=== PATIENT | female | born 1970 | race Caucasian/White ===

== ENCOUNTER → 2017-04-23 | Outpatient (REF) | payer OTHER | LOC: M SFHCWAGY 15:13 | PROVIDERS: ATTEND Nurse Practitioner Women's Health | DX: Z12.4 Encounter for screening for malignant neoplasm of cervix (principal) ==

== ENCOUNTER → 2017-04-23 | Outpatient (CLI) | payer OTHER ==
--- NOTE | 2017-04-23 16:50 | REP ---
Bilateral screening digital mammogram: The patient indicates she had a clinical breast exam in April 2017. There are no palpable abnormalities or other breast complaints. Comparison is 12/01/2011. There is bilaterally dense breast parenchyma, not significantly changed. There has been no interval development of masses, areas of structural distortion or clusters of microcalcifications typical of malignancy. Impression: There is no evidence of malignancy. . BI-RADS/ACR category 1 mammogram. Negative. Routine annual screening mammography is recommended. This mammogram was interpreted with the aid of an FDA-approved computer-aided detection system. A. Negative x-ray reports should not delay biopsy if a dominant or clinically suspicious mass is present. B. Four to eight percent of cancers are not identified by x-ray. C. Adenosis and dense breasts may obscure an underlying neoplasm The patient letter being requested is M1 (Dense). MTDD
== END ==
LOC: M WHC 14:37
PROVIDERS: ATTEND Nurse Practitioner Women's Health
DX: Z12.31 Encounter for screening mammogram for malignant neoplasm of breast (principal)

== ENCOUNTER → 2017-05-02 | Outpatient (CLI) | payer OTHER ==
[2017-05-02 10:51] LABS: MEAN CORPUSCULAR HEMOGLOBIN 30.2 pg (27.0-33.0); MEAN CORPUSCULAR HGB CONC 32.6 g/dl (32.0-36.5); MEAN CORPUSCULAR VOLUME 92.6 fl (80.0-96.0); RED CELL DISTRIBUTION WIDTH 12.9 % (11.5-14.5); WHITE BLOOD COUNT 8.3 10^3/uL (4.0-10.0)
[2017-05-02 11:22] LABS: ALBUMIN 3.8 GM/DL (3.2-5.2); ALBUMIN/GLOBULIN RATIO 1.23 (1.00-1.93); ALKALINE PHOSPHATASE 76 U/L (45-117); ALT/SGPT 22 U/L (12-78); ANION GAP 7 MEQ/L (8-16); AST/SGOT 13 U/L (15-37); BILIRUBIN,TOTAL 0.4 MG/DL (0.2-1.0); BLOOD UREA NITROGEN 18 MG/DL (7-18); CALCIUM LEVEL 8.9 MG/DL (8.5-10.1); CARBON DIOXIDE LEVEL 30 MEQ/L (21-32); CHLORIDE LEVEL 105 MEQ/L (98-107); CHOLESTEROL LEVEL 223 MG/DL (<200); CREATININE FOR GFR 0.81 MG/DL (0.55-1.02); GLOMERULAR FILTRATION RATE > 60.0 (>58); GLUCOSE, FASTING 97 MG/DL (70-105); POTASSIUM SERUM 4.2 MEQ/L (3.5-5.1); SODIUM LEVEL 142 MEQ/L (136-145); THYROXINE (T4) 7.2 UG/DL (4.5-12.0); TOTAL PROTEIN 6.9 GM/DL (6.4-8.2); TRIGLYCERIDES LEVEL 97 MG/DL (<150)
== END ==
LOC: M LAB 10:33
PROVIDERS: ATTEND Family Medicine
DX: D64.9 Anemia, unspecified (principal); E03.9 Hypothyroidism, unspecified

== ENCOUNTER → 2017-08-09 | Outpatient (CLI) | payer OTHER ==
[2017-08-09 11:42] LABS: HEMATOCRIT 43.1 % (36.0-47.0); HEMOGLOBIN 14.3 g/dl (12.0-16.0); MEAN CORPUSCULAR HEMOGLOBIN 30.6 pg (27.0-33.0); MEAN CORPUSCULAR HGB CONC 33.2 g/dl (32.0-36.5); MEAN CORPUSCULAR VOLUME 92.3 fl (80.0-96.0); PLATELET COUNT, AUTOMATED 243 10^3/uL (150-450); RED BLOOD COUNT 4.67 10^6/uL (4.00-5.40); RED CELL DISTRIBUTION WIDTH 12.8 % (11.5-14.5); WHITE BLOOD COUNT 6.7 10^3/uL (4.0-10.0)
[2017-08-09 12:03] LABS: ESTIMATED AVERAGE GLUCOSE 114 MG/DL (60-110); HEMOGLOBIN A1c 5.6 %
[2017-08-09 12:17] LABS: ALBUMIN 4.2 GM/DL (3.2-5.2); ALKALINE PHOSPHATASE 86 U/L (45-117); ALT/SGPT 21 U/L (12-78); ANION GAP 7 MEQ/L (8-16); AST/SGOT 15 U/L (7-37); BILIRUBIN,TOTAL 0.5 MG/DL (0.2-1.0); BLOOD UREA NITROGEN 16 MG/DL (7-18); CARBON DIOXIDE LEVEL 28 MEQ/L (21-32); CHLORIDE LEVEL 105 MEQ/L (98-107); CHOLESTEROL LEVEL 251 MG/DL (<200); CHOLESTEROL RISK RATIO 5.837 (<5); CREATININE FOR GFR 0.82 MG/DL (0.55-1.02); GLOMERULAR FILTRATION RATE > 60.0 (>58); GLUCOSE, FASTING 97 MG/DL (70-105); HDL CHOLESTEROL 43 MG/DL (>40); LDL CHOLESTEROL 188.2 MG/DL (<100); NON-HDL-C 208 MG/DL; POTASSIUM SERUM 4.6 MEQ/L (3.5-5.1); SODIUM LEVEL 140 MEQ/L (136-145); TOTAL PROTEIN 7.7 GM/DL (6.4-8.2); TRIGLYCERIDES LEVEL 99 MG/DL (<150); URIC ACID 2.5 MG/DL (2.6-6.0)
[2017-08-10 11:57] LABS: TOTAL 25(OH) VITAMIN D 67.2 NG/ML (30.0-100.0)
== END ==
LOC: M LAB 11:08
DX: D64.9 Anemia, unspecified (principal); R53.83 Other fatigue; E03.9 Hypothyroidism, unspecified; M79.672 Pain in left foot; M77.32 Calcaneal spur, left foot
CPT/HCPCS: 73650

== ENCOUNTER → 2018-04-20 | Outpatient (CLI) | payer OTHER ==
[2018-04-20 13:25] LABS: HEMATOCRIT 43.2 % (36.0-47.0); HEMOGLOBIN 14.3 g/dl (12.0-15.5); MEAN CORPUSCULAR HEMOGLOBIN 29.9 pg (27.0-33.0); MEAN CORPUSCULAR HGB CONC 33.1 g/dl (32.0-36.5); MEAN CORPUSCULAR VOLUME 90.4 fl (80.0-96.0); PLATELET COUNT, AUTOMATED 272 10^3/uL (150-450); RED BLOOD COUNT 4.78 10^6/uL (4.00-5.40); RED CELL DISTRIBUTION WIDTH 12.7 % (11.5-14.5); WHITE BLOOD COUNT 8.9 10^3/uL (4.0-10.0)
[2018-04-20 14:19] LABS: ALBUMIN/GLOBULIN RATIO 0.95 (1.00-1.93); ALKALINE PHOSPHATASE 82 U/L (45-117); ALT/SGPT 24 U/L (12-78); ANION GAP 10 MEQ/L (8-16); AST/SGOT 19 U/L (7-37); BILIRUBIN,TOTAL 0.5 MG/DL (0.2-1.0); BLOOD UREA NITROGEN 16 MG/DL (7-18); CALCIUM LEVEL 8.9 MG/DL (8.5-10.1); CARBON DIOXIDE LEVEL 27 MEQ/L (21-32); CHLORIDE LEVEL 101 MEQ/L (98-107); CHOLESTEROL LEVEL 249 MG/DL (<200); CHOLESTEROL RISK RATIO 6.552 (<5); FREE T4 1.06 NG/DL (0.76-1.46); GLOMERULAR FILTRATION RATE > 60.0 (>58); GLUCOSE, FASTING 78 MG/DL (70-100); HDL CHOLESTEROL 38 MG/DL (>40); LDL CHOLESTEROL 184 MG/DL (<100); NON-HDL-C 211 MG/DL; SODIUM LEVEL 138 MEQ/L (136-145); TOTAL 25(OH) VITAMIN D 65.8 NG/ML (30.0-100.0); TOTAL PROTEIN 8.2 GM/DL (6.4-8.2); TRIGLYCERIDES LEVEL 134 MG/DL (<150)
[2018-04-20 14:32] LABS: ESTIMATED AVERAGE GLUCOSE 120 MG/DL (60-110); HEMOGLOBIN A1c 5.8 %
== END ==
LOC: M LAB 12:27
DX: R53.83 Other fatigue (principal)
CPT/HCPCS: 84443

== ENCOUNTER → 2018-09-27 | Outpatient (CLI) | payer BC ==
--- NOTE | 2018-09-27 17:49 | REPMRS ---
Patient History The patient states she had a clinical breast exam in 09/2018 Family history of endometrial cancer at age 50 or over in mother. Taking hormonal contraceptives for 7 years. Digital Woman Screen Mammo: September 27, 2018 - Exam #: [id number] Bilateral CC and MLO view(s) were taken. Technologist: Rebecca Carrasquillo, Technologist Prior study comparison: April 23, 2017, digital woman screen mammo performed at [facility]. April 17, 2016, digital woman screen mammo performed at [facility]. FINDINGS: The breast tissue is heterogeneously dense. This may lower the sensitivity of mammography. There has been no change in the appearance of the mammogram from the prior studies. There is a moderate amount of residual fibroglandular tissue which is fairly symmetric. There is no interval development of dominant mass, architectural distortion, or clustered microcalcification typical of malignancy. 3-D tomosynthesis shows no additional findings. No significant changes when compared with prior studies. Assessment: BI-RADS/ACR category 1 mammogram. Negative Mammogram. Recommendation Routine screening mammogram in 1 year (for women over age 40). This mammogram was interpreted with the aid of an FDA-approved computer-aided dectection system. A. Negative x-ray reports should not delay biopsy if a dominant or clinically suspicious mass is present. B. Four to eight percent of cancers are not identified by mammography. C. Adenosis and dense breast may obscure an underlying neoplasm. Electronically Signed By: Milo Garcia MD 09/27/18 [id number]
== END ==
LOC: M WHC 15:18
PROVIDERS: ATTEND Nurse Practitioner Women's Health
DX: Z12.31 Encounter for screening mammogram for malignant neoplasm of breast (principal); Z80.49 Family history of malignant neoplasm of other genital organs; Z92.0 Personal history of contraception

== ENCOUNTER → 2020-01-23 | Outpatient (CLI) | payer BC ==
--- NOTE | 2020-01-23 13:23 | REPMRS ---
Patient History The patient states she had a clinical breast exam in January 2020. Family history of endometrial cancer at age 50 or over in mother. Taking hormonal contraceptives for 8 years. 3D TOMOSYNTHESIS WAS PERFORMED. [facility] for [facility] cancer [facility] 8.2%. PINEDA Walker. Digital Woman Screen Mammo: January 23, 2020 - Exam #: [id number] Bilateral CC and MLO view(s) were taken. Technologist: Sakshi Linder, Technologist Prior study comparison: September 27, 2018, bilateral digital woman screen mammo performed at [facility]. April 23, 2017, digital woman screen mammo performed at [facility]. FINDINGS: The breast tissue is heterogeneously dense. This may lower the sensitivity of mammography. There has been no change in the appearance of the mammogram from the prior studies. There is a moderate amount of residual fibroglandular tissue which is fairly symmetric. There is no interval development of dominant mass, areas of architectural distortion, or clustered microcalcification typical of malignancy. Assessment: BI-RADS/ACR category 1 mammogram. Negative Mammogram. Recommendation Routine screening mammogram in 1 year (for women over age 40). This mammogram was interpreted with the aid of an FDA-approved computer-aided dectection system. Electronically Signed By: Timmy Machado MD 01/23/20 [id number]
== END ==
LOC: M WHC 11:33
PROVIDERS: ATTEND Nurse Practitioner Women's Health
DX: Z12.31 Encounter for screening mammogram for malignant neoplasm of breast (principal); Z80.49 Family history of malignant neoplasm of other genital organs

== ENCOUNTER → 2020-01-23 | Outpatient (REF) | payer BC | LOC: M SFHCWAGY 14:47 | PROVIDERS: ATTEND Nurse Practitioner Women's Health | DX: Z12.4 Encounter for screening for malignant neoplasm of cervix (principal) ==

== ENCOUNTER 2020-08-17 09:17 | Emergency (ER) | payer BC ==
[~2020-08-17] VITALS: Ht 162.6 cm; Wt 79.8 kg
--- OUTSIDE RECORDS SUMMARY | 2020-08-17 09:23 | CCD ---
Author Author [facility] Organization [facility] Address Unknown Phone Unavailable Care Team Providers Care Field Sales Trainer Name Role Phone LILO PERRY Unavailable Unavailable Re-disclosure Warning The records that you are about to access may contain information from federally-assisted alcohol or drug abuse programs. If such information is present, then the following federally mandated warning applies: This information has been disclosed to you from records protected by federal confidentiality rules (42 CFR part 2). The federal rules prohibit you from making any further disclosure of this information unless further disclosure is expressly permitted by the written consent of the person to whom it pertains or as otherwise permitted by 42 CFR part 2. A general authorization for the release of medical or other information is NOT sufficient for this purpose. The Federal rules restrict any use of the information to criminally investigate or prosecute any alcohol or drug abuse patient.The records that you are about to access may contain highly sensitive health information, the redisclosure of which is protected by Article 27-F of the [facility] Public Health law. If you continue you may have access to information: Regarding HIV / AIDS; Provided by facilities licensed or operated by the [facility] Office of Mental Health; or Provided by the [facility] Office for People With Developmental Disabilities. If such information is present, then the following [facility] mandated warning applies: This information has been disclosed to you from confidential records which are protected by state law. State law prohibits you from making any further disclosure of this information without the specific written consent of the person to whom it pertains, or as otherwise permitted by law. Any unauthorized further disclosure in violation of state law may result in a fine or half-way sentence or both. A general authorization for the release of medical or other information is NOT sufficient authorization for further disc losure. Encounters Encounter Providers Location Date Indications Data Source(s ) Outpatient Attender: [facility] 05/07/2020 04:04:00 PM EDT [facility] Outpatient Attender: [facility] 05/04/2020 12:29:01 PM EDT [facility] Outpatient Attender: [facility] 05/03/2020 03:56:01 PM EDT [facility] Outpatient Attender: [facility] 05/03/2020 03:55:00 PM EDT [facility] Outpatient [id number] [facility] [id number] 01/23/2020 12:00:00 AM EDT eCW1 ([facility]) Medications Medication Brand Name Start Date Product Form Dose Route Admi nistrative Instructions Pharmacy Instructions Status Indications Reaction Description Data Source(s) 4 mg 08/16/2020 12:00:00 AM EST tablets,dose pack 21 TAKE 1 TABLET BY MOUTH DIRECTED ON PACK TAKE 1 TABLET BY MOUTH DIRECTED ON PACK SOLD: 08/16/2020 [facility] 250 mg 08/16/2020 12:00:00 AM EST tablet 6 TAKE TWO TABLETS BY MOUTH AT ONCE ON THE FIRST DAY THEN TAKE ONE DAILY THEREAFTER TAKE TWO TABLETS BY MOUTH AT ONCE ON THE FIRST DAY THEN TAKE ONE DAILY THEREAFTER SOLD: 08/16/2020 [facility] 40 mg 08/13/2020 12:00:00 AM EST capsule 30 TAKE ONE CAPSULE BY MOUTH EVERY DAY TAKE ONE CAPSULE BY MOUTH EVERY DAY SOLD: 08/16/2020 [facility] 20 mg 08/13/2020 12:00:00 AM EST tablet 90 TAKE ONE TABLET BY MOUTH EVERY DAY TAKE ONE TABLET BY MOUTH EVERY DAY SOLD: 08/16/2020 [facility] 20 mg 08/13/2020 12:00:00 AM EST capsule,delayed release (DR/EC) 90 TAKE ONE CAPSULE BY MOUTH EVERY DAY TAKE ONE CAPSULE BY MOUTH EVERY DAY SOLD: 08/16/2020 [facility] Alprazolam 0.5 MG Oral Tablet ALPRAZOLAM 08/13/2020 12:00:00 AM EST ta blet 60 TAKE ONE TABLET BY MOUTH TWICE A DAY MAXIMUM DAILY DOSE = 2 TABLETS TAKE ONE TABLET BY MOUTH TWICE A DAY MAXIMUM DAILY DOSE = 2 TABLETS SOLD: 08/16/2020 [facility] Alprazolam 0.5 MG Oral Tablet ALPRAZOLAM 07/09/2020 12:00:00 AM EST ta blet 60 TAKE ONE TABLET BY MOUTH TWICE A DAY MAXIMUM DAILY DOSE = 2 TABLETS TAKE ONE TABLET BY MOUTH TWICE A DAY MAXIMUM DAILY DOSE = 2 TABLETS SOLD: 07/19/2020 [facility] 40 mg 07/09/2020 12:00:00 AM EST capsule 30 TAKE ONE CAPSULE BY MOUTH EVERY DAY TAKE ONE CAPSULE BY MOUTH EVERY DAY SOLD: 07/19/2020 [facility] 40 mg 06/11/2020 12:00:00 AM EST capsule 30 TAKE ONE CAPSULE BY MOUTH EVERY DAY TAKE ONE CAPSULE BY MOUTH EVERY DAY SOLD: 06/18/2020 [facility] Alprazolam 0.5 MG Oral Tablet ALPRAZOLAM 06/11/2020 12:00:00 AM EST ta blet 60 TAKE ONE TABLET BY MOUTH TWICE A DAY MAXIMUM DAILY DOSE = 2 TABLETS TAKE ONE TABLET BY MOUTH TWICE A DAY MAXIMUM DAILY DOSE = 2 TABLETS SOLD: 06/18/2020 [facility] 20 mg 05/08/2020 12:00:00 AM EDT capsule,delayed release (DR/EC) 90 TAKE ONE CAPSULE BY MOUTH EVERY DAY TAKE ONE CAPSULE BY MOUTH EVERY DAY SOLD: 05/13/2020 [facility] 40 mg 05/08/2020 12:00:00 AM EDT capsule 30 TAKE ONE CAPSULE BY MOUTH EVERY DAY TAKE ONE CAPSULE BY MOUTH EVERY DAY SOLD: 05/13/2020 [facility] Alprazolam 0.5 MG Oral Tablet ALPRAZOLAM 05/08/2020 12:00:00 AM EDT ta blet 60 TAKE ONE TABLET BY MOUTH TWICE A DAY MAXIMUM DAILY DOSE = 2 TABLETS TAKE ONE TABLET BY MOUTH TWICE A DAY MAXIMUM DAILY DOSE = 2 TABLETS SOLD: 05/13/2020 [facility] 20 mg 05/08/2020 12:00:00 AM EDT tablet 90 TAKE ONE TABLET BY MOUTH EVERY DAY TAKE ONE TABLET BY MOUTH EVERY DAY SOLD: 05/13/2020 [facility] Alprazolam 0.5 MG Oral Tablet ALPRAZOLAM 04/10/2020 12:00:00 AM EDT ta blet 60 TAKE ONE TABLET BY MOUTH TWICE A DAY MAXIMUM DAILY DOSE = 2 TABLETS TAKE ONE TABLET BY MOUTH TWICE A DAY MAXIMUM DAILY DOSE = 2 TABLETS SOLD: 04/15/2020 [facility] 40 mg 04/09/2020 12:00:00 AM EDT capsule 30 TAKE ONE CAPSULE BY MOUTH EVERY DAY TAKE ONE CAPSULE BY MOUTH EVERY DAY SOLD: 04/15/2020 [facility] Alprazolam 0.5 MG Oral Tablet ALPRAZOLAM 03/12/2020 12:00:00 AM EDT ta blet 60 TAKE ONE TABLET BY MOUTH TWICE A DAY MAXIMUM DAILY DOSE = 2 TABLETS TAKE ONE TABLET BY MOUTH TWICE A DAY MAXIMUM DAILY DOSE = 2 TABLETS SOLD: 03/24/2020 [facility] 40 mg 03/12/2020 12:00:00 AM EDT capsule 30 TAKE ONE CAPSULE BY MOUTH EVERY DAY TAKE ONE CAPSULE BY MOUTH EVERY DAY SOLD: 03/24/2020 [facility] Alprazolam 0.5 MG Oral Tablet ALPRAZOLAM 02/07/2020 12:00:00 AM EDT ta blet 60 TAKE ONE TABLET BY MOUTH TWICE A DAY MAXIMUM DAILY DOSE = 2 TABLETS TAKE ONE TABLET BY MOUTH TWICE A DAY MAXIMUM DAILY DOSE = 2 TABLETS SOLD: 02/14/2020 [facility] 40 mg 02/07/2020 12:00:00 AM EDT capsule 30 TAKE ONE CAPSULE BY MOUTH EVERY DAY TAKE ONE CAPSULE BY MOUTH EVERY DAY SOLD: 02/14/2020 [facility] 20 mg 02/07/2020 12:00:00 AM EDT capsule,delayed release (DR/EC) 90 TAKE ONE CAPSULE BY MOUTH EVERY DAY TAKE ONE CAPSULE BY MOUTH EVERY DAY SOLD: 02/14/2020 [facility] 20 mg 02/07/2020 12:00:00 AM EDT tablet 90 TAKE ONE TABLET BY MOUTH EVERY DAY TAKE ONE TABLET BY MOUTH EVERY DAY SOLD: 02/14/2020 [facility] 500 mg 01/23/2020 12:00:00 AM EDT tablet 90 TAKE ONE TABLET BY MOUTH EVERY DAY TAKE ONE TABLET BY MOUTH EVERY DAY SOLD: 05/13/2020 [facility] 500 mg 01/23/2020 12:00:00 AM EDT tablet 90 TAKE ONE TABLET BY MOUTH EVERY DAY TAKE ONE TABLET BY MOUTH EVERY DAY SOLD: 01/25/2020 [facility] Alprazolam 0.5 MG Oral Tablet ALPRAZOLAM 01/10/2020 12:00:00 AM EDT ta blet 60 TAKE ONE TABLET BY MOUTH TWICE A DAY MAXIMUM DAILY DOSE = TWO TABLETS TAKE ONE TABLET BY MOUTH TWICE A DAY MAXIMUM DAILY DOSE = TWO TABLETS SOLD: 01/17/2020 [facility] 40 mg 01/10/2020 12:00:00 AM EDT capsule 30 TAKE ONE CAPSULE BY MOUTH EVERY DAY TAKE ONE CAPSULE BY MOUTH EVERY DAY SOLD: 01/17/2020 [facility] Alprazolam 0.5 MG Oral Tablet ALPRAZOLAM 12/12/2019 12:00:00 AM EDT ta blet 60 TAKE ONE TABLET BY MOUTH TWICE A DAY. MAX DAILY DOSE= TWO TABLETS TAKE ONE TABLET BY MOUTH TWICE A DAY. MAX DAILY DOSE= TWO TABLETS SOLD: 12/12/2019 [facility] 40 mg 12/06/2019 12:00:00 AM EDT capsule 30 TAKE ONE CAPSULE BY MOUTH EVERY DAY TAKE ONE CAPSULE BY MOUTH EVERY DAY SOLD: 12/12/2019 [facility] 20 mg 11/15/2019 12:00:00 AM EDT tablet 90 TAKE ONE TABLET BY MOUTH EVERY DAY TAKE ONE TABLET BY MOUTH EVERY DAY SOLD: 11/21/2019 [facility] Alprazolam 0.5 MG Oral Tablet ALPRAZOLAM 11/15/2019 12:00:00 AM EDT ta blet 60 TAKE ONE TABLET BY MOUTH TWICE A DAY MAXIMUM DAILY DOSE = 2 TABLETS TAKE ONE TABLET BY MOUTH TWICE A DAY MAXIMUM DAILY DOSE = 2 TABLETS SOLD: 11/21/2019 [facility] 40 mg 11/15/2019 12:00:00 AM EDT capsule 30 TAKE ONE CAPSULE BY MOUTH EVERY DAY TAKE ONE CAPSULE BY MOUTH EVERY DAY SOLD: 11/21/2019 [facility] 20 mg 11/15/2019 12:00:00 AM EDT capsule,delayed release (DR/EC) 90 TAKE ONE CAPSULE BY MOUTH EVERY DAY TAKE ONE CAPSULE BY MOUTH EVERY DAY SOLD: 11/21/2019 [facility] 40 mg 10/18/2019 12:00:00 AM EDT capsule 30 TAKE ONE CAPSULE BY MOUTH EVERY DAY TAKE ONE CAPSULE BY MOUTH EVERY DAY SOLD: 10/19/2019 [facility] Alprazolam 0.5 MG Oral Tablet ALPRAZOLAM 10/18/2019 12:00:00 AM EDT ta blet 60 TAKE ONE TABLET BY MOUTH TWICE A DAY MAXIMUM DAILY DOSE = 2 TABLETS TAKE ONE TABLET BY MOUTH TWICE A DAY MAXIMUM DAILY DOSE = 2 TABLETS SOLD: 10/19/2019 [facility] 40 mg 09/26/2019 12:00:00 AM EDT capsule 30 TAKE ONE CAPSULE BY MOUTH EVERY DAY TAKE ONE CAPSULE BY MOUTH EVERY DAY SOLD: 10/02/2019 [facility] Alprazolam 0.5 MG Oral Tablet ALPRAZOLAM 09/26/2019 12:00:00 AM EDT ta blet 60 TAKE ONE TABLET BY MOUTH TWICE A DAY MAXIMUM DAILY DOSE = 2 TAKE ONE TABLET BY MOUTH TWICE A DAY MAXIMUM DAILY DOSE = 2 SOLD: 10/02/2019 [facility] 20 mg 08/24/2019 12:00:00 AM EST tablet 90 TAKE ONE TABLET BY MOUTH EVERY DAY TAKE ONE TABLET BY MOUTH EVERY DAY SOLD: 08/24/2019 [facility] 20 mg 08/24/2019 12:00:00 AM EST capsule,delayed release (DR/EC) 90 TAKE ONE CAPSULE BY MOUTH EVERY DAY TAKE ONE CAPSULE BY MOUTH EVERY DAY SOLD: 08/24/2019 [facility] Alprazolam 0.5 MG Oral Tablet ALPRAZOLAM 08/22/2019 12:00:00 AM EST ta blet 60 TAKE ONE TABLET BY MOUTH TWICE A DAY MAXIMUM DAILY DOSE = 2 TABLETS TAKE ONE TABLET BY MOUTH TWICE A DAY MAXIMUM DAILY DOSE = 2 TABLETS SOLD: 08/24/2019 [facility] 40 mg 08/22/2019 12:00:00 AM EST capsule 30 TAKE ONE CAPSULE BY MOUTH EVERY DAY TAKE ONE CAPSULE BY MOUTH EVERY DAY SOLD: 08/24/2019 [facility] Alprazolam 0.5 MG Oral Tablet ALPRAZOLAM 07/12/2019 12:00:00 AM EST ta blet 90 TAKE 1 TABLET BY MOUTH 3 TIMES A DAY MAXIMUM DAILY DOSE = 3 TABLETS TAKE 1 TABLET BY MOUTH 3 TIMES A DAY MAXIMUM DAILY DOSE = 3 TABLETS SOLD: 07/12/2019 [facility] 40 mg 07/12/2019 12:00:00 AM EST capsule 30 TAKE ONE CAPSULE BY MOUTH EVERY DAY TAKE ONE CAPSULE BY MOUTH EVERY DAY SOLD: 07/12/2019 [facility] 40 mg 06/13/2019 12:00:00 AM EST capsule 30 TAKE ONE CAPSULE BY MOUTH EVERY DAY TAKE ONE CAPSULE BY MOUTH EVERY DAY SOLD: 06/21/2019 [facility] 0.5 mg 06/13/2019 12:00:00 AM EST tablet 90 TAKE ONE TABLET BY MOUTH THREE TIMES A DAY MAXIMUM DAILY DOSE = 3 TAKE ONE TABLET BY MOUTH THREE TIMES A D AY MAXIMUM DAILY DOSE = 3 SOLD: 06/21/2019 [facility] Insurance Providers Payer name Policy type / Coverage type Policy ID Covered alliance party ID Covered alliance party's relationship to sparks Policy [place] Plan Information [employer] [place] PPO 302/[phone] [id number] SP [id number] [employer] P UNAVAILABLE S UNAV AILABLE ANSI-Commercial [id number] [facility] [id number] SP [id number] [facility] O [id number] S [id number] [facility] [id number] SP [id number] SELF PAY P SELF PAY S SELF PAY EXCELLUS BCBS P [id number] S [id number] [employer] [id number] SP [id number] [facility] [employer] BLUE [id number] SP [id number] Problems, Conditions, and Diagnoses Code Display Name Description Problem Type Effective Dates Data Source(s) Z01.419 Gynecological examination normal Encount er for gynecological examination without abnormal finding Problem 01/19/2020 12:00:00 AM EDT eCW1 ([facility]) Results ID Date Data Source [id number] 08/10/2020 12:00:00 AM EST [facility] Name Value Range Interpretation Code Description Data Karine rce(s) Supporting Document(s) SARS-CoV2 Rapid Antigen Positive [facility] This lab was ordered by [facility] and reported by [facility]. ID Date Data Source [id number] 07/30/2020 12:00:00 AM EST [facility] Name Value Range Interpretation Code Description Data Karine rce(s) Supporting Document(s) SARS-CoV2 Rapid Antigen Negative [facility] This lab was ordered by [facility] and reported by [facility]. ID Date Data Source [id number] 05/03/2020 03:27:52 PM EDT [facility] Patient History Medical History:[facility]None. Family History:Diabetes (Mother, Maternal Grandmother)Cancer - uturin; lung (Mother)Heart disease (Maternal Grandmother)Social/Personal History: Smoking Status: former smokerYear Quit: 2014Do you vape? YesChief Complaint: Routine CleaningVisit Type: ExamProblem list reviewed during this update.No known problems.Current Medications: * XANAX * PRILOSEC * LASIX * PROZAC Medication list reviewed during this update.Allergy list reviewed during this update.No known allergies.Past Medical History:(reviewed - no changes required) Jessica frank [facility] Dental Chart: Procedures:Type - CDT Code - Description B - (D0150) Comprehensive oral evaluation - new or established patient (Performed by Douglas Tomas DDS) B - (D1110) Prophylaxis, adult (Performed by Candace HUMPHRIESHerlinda) B - (D0210) Intraoral, complete series of radiographic images (Performed by Candace HUMPHRIESHerlinda) Treatments:Type - CDT Code - Description T - (D2392) Resin-based composite, 2 surfaces, posterior on Tooth # 3 on Tooth Surface MO (Performed by Candace HUMPHRIESHerlinda) T - (D2391) Resin- based composite - one surface, posterior on Tooth # 14 on Tooth Surface B (Performed by Candace HUMPHRIESHerlinda) T - (D2391) Resin-based composite - one surface, posterior on Tooth # 5 on Tooth Surface B (Performed by Candace HUMPHRIESHerlinda) Existing:Type - CDT Code - Description[E] [employer] On #2 Surface O, #28 Surface O, #3 Surface O, #31 Surface O[E] Root Canal On #4 Region A[E] Resin-Based Composite - Direct On #10 Surface L, #12 Surface DO, #14 Surface O, #2 Surface DL, #20 Surface DO, #21 Surface O, #31 Surface DLMB, #5 Surface OD, #7 Surface L, #8 Surface ML, #9 Surface ML[E] Missing - [employer] and Root On #1 Surface O Region XR, #16 Surface O Region XR, #17 Surface O Region XR, #18 Surface O Region XR, #19 Surface O Region XR, #30 Surface O Region XR, #32 Surface O Region XR[E] [employer] - 3/4 Cast Predominantly Base Metal On #4 Chart Notes:lilo (May 04 2020 12:27PM): [facility]). CC: none. Reviewed Xrays. Exam: caries detected. OCS: WNL, IO/ EO completed, No significant hard findings upon clinical exam.Additional PPE requirements due to COVID-19 in the dental setting, N95, surgical mask, hair covering, gown and shieldPt was cooperative. OHI given Referral: N/A NV:restorationFoHerlinda sena RDH by lilo (05/04/2020 12:27 PM): ; lillie (May 03 2020 4:24PM): CC: Establish careRMH: New pt; unremarkable historyAllergies: NoneSmoking Status: Former -- current vaperBP: See BP log - Taken today - WNLTemp: 97.9EO/IO: Oral cancer screening performed - no abnormalites noted; normal mucosa with no white or raised patches. No lymphadenopathy. No poping or clicking of the TMJ. Pt has fair oral health and fair oral hygiene. 3 areas of decay per doc. Pt reports she brushes 1xday. Probing depths 1-3mm with trace BOP. Behavior: Very compliant - pt stated she has a lot of dental anxietyTX: Adult prophy, Perio charting, FMX, and exam by Dr. Tomas. Additional PPE used due to COVID-19. This included a minimum of a N95, a surgical mask, a hair covering, a face shield, proctective eyewear, a gown, and additional barriers.OHI: Spoke to pt about brushing and flossing. Talked to pt about the importance of good homecare and regular dental visits. NV: Restorative. 6MRCHerlinda Maria RDH by lillie (05/03/2020 4:24 PM): Tooth Notes and Watches: Assessment & Plan Medications:[id number] Changes:Added: * PROZAC* LASIX* PRILOSEC* XANAXAllergies:No Known Allergies (updated 05/03/2020) Name Value Range Interpretation Code Description Data Karine rce(s) Supporting Document(s) ID Date Data Source PAP REQUEST FOR SERVICE 01/26/2020 08:48:29 AM EDT [facility] ([facility]) Name Value Range Interpretation Code Description Data Karine rce(s) Supporting Document(s) Laboratory studies (set) PAP REQUEST FOR SERVICE [facility] ([facility]) Procedure Social History Code Duration Value Status Description Data Source(s ) Smoking 01/23/2020 12:00:00 AM EDT Former Smoker completed Former Smoker [facility] ([facility]) Vital Signs ID Date Data Source UNK Name Value Range Interpretation Code Description Data Source(s) Diastolic blood pressure 68 mm[Hg] 68 mm[Hg] W1 ([facility]) Systolic blood pressure 116 mm[Hg] 116 mm[Hg] e CW1 ([facility]) Body mass index (BMI) [Ratio] 30.36 kg/m2 30.36 kg/m2 [facility] ([facility]) Body height 62 [in_i] 62 [in_i] [facility] ([facility]) Body weight 166 [lb_av] 166 [lb_av] [facility] ([facility])
[2020-08-17] MEDS ORDERED: LORazepam 1 MG TAB PO STA (09:29)
[2020-08-17] MEDS ORDERED: BENZONATATE 100 MG CAP PO ONE (09:30)
[2020-08-17] MEDS ORDERED: ALPR0.5T3 PO (09:49)
[2020-08-17] MEDS ORDERED: OMEP-218 PO (09:49)
[2020-08-17] MEDS ORDERED: FURO20TA2 PO (09:49)
[2020-08-17] MEDS ORDERED: ZITHTAB PO (09:49)
[2020-08-17] MEDS ORDERED: MEDR1TAB PO (09:49)
[2020-08-17] MEDS ORDERED: FLUO40CA PO (09:49)
[2020-08-17] MEDS ORDERED: TESS100C PO (09:50)
[2020-08-17] MEDS ORDERED: ONDA4TAB6 PO (09:51)
--- OUTSIDE RECORDS SUMMARY | 2020-08-17 10:13 | CCD ---
Author Author [facility] Organization [facility] Address Unknown Phone Unavailable Care Team Providers Care Glass Vial Bending Conveyor Feeder Name Role Phone LILO PERRY Unavailable Unavailable [...] is protected by Article 27-F of the [facility] Public Health law. If you continue you may have access to information: Regarding HIV / AIDS; Provided by facilities licensed or operated by the [facility] Office of Mental Health; or Provided by the [facility] Office for People With Developmental Disabilities. If such information is present, then the following [facility] mandated warning applies: This information has been [...] law may result in a fine or long-term sentence or both. A general authorization for the release of medical or other information is NOT sufficient authorization for further disc losure. Encounters Encounter Providers Location Date Indications Data Source(s ) Outpatient Attender: [facility] 05/07/2020 04:04:00 PM EDT [facility] Outpatient Attender: [facility] 05/04/2020 12:29:01 PM EDT [facility] Outpatient Attender: [facility] 05/03/2020 03:56:01 PM EDT [facility] Outpatient Attender: [facility] 05/03/2020 03:55:00 PM EDT [facility] Outpatient [address] [id number] 01/23/2020 12:00:00 AM EDT eCW1 ([facility]) Medications Medication Brand Name Start Date Product [...] type / Coverage type Policy ID Covered democrat ID Covered democrat's relationship to sparks Policy [place] Plan Information [place] PPO 302/307 [id number] SP [id number] [employer] BCBS P UNAVAILABLE S UNAV AILABLE ANSI-Commercial [id number] [facility] [id number] SP [id number] [facility] O [id number] S [id number] [facility] [id number] SP [id number] SELF PAY P SELF PAY S SELF PAY EXCELLUS BCBS P [id number] S [id number] BLUE CROSS POPE PLAN [id number] SP [id number] [facility] BLUE [id number] SP [id number] Problems, Conditions, and Diagnoses Code Display Name Description Problem Type Effective Dates Data Source(s) Z01.419 Gynecological examination normal Encount er for gynecological examination without abnormal finding Problem 01/19/2020 12:00:00 AM EDT eCW1 ([facility]) Results ID Date Data Source 134 08/10/2020 12:00:00 AM EST [facility] Name Value Range Interpretation Code Description Data Karine rce(s) Supporting Document(s) SARS-CoV2 Rapid Antigen Positive [facility] and reported by [facility]. ID Date Data Source 930 07/30/2020 12:00:00 AM EST [facility] Name Value Range Interpretation Code Description Data Karine rce(s) Supporting Document(s) SARS-CoV2 Rapid Antigen Negative [facility] This lab was ordered by [facility] and reported by [facility]. ID Date Data Source [id number] 05/03/2020 03:27:52 PM EDT [facility] Patient History [facility]. Family History:Diabetes (Mother, Maternal Grandmother)Cancer - [...] History:(reviewed - no changes required) Jessica frank [facility] Dental Chart: Procedures:Type - CDT Code - [...] Existing:Type - CDT Code - Description[E] Amalgam Sabianist On #2 Surface O, #28 Surface O, #3 Surface O, #31 Surface O[E] Root Canal On #4 Region A[E] Resin-Based Composite - Direct On #10 Surface L, #12 Surface DO, #14 Surface O, #2 Surface DL, #20 Surface DO, #21 Surface O, #31 Surface DLMB, #5 Surface OD, #7 Surface L, #8 Surface ML, #9 Surface ML[E] Missing - [place] and Root On #1 Surface O Region XR, #16 Surface O Region XR, #17 Surface O Region XR, #18 Surface O Region XR, #19 Surface O Region XR, #30 Surface O Region XR, #32 Surface O Region XR[E] [place] - 3/4 Cast Predominantly Base Metal On #4 Chart Notes:lilo (May 04 2020 12:27PM): [facility]). CC: none. Reviewed Xrays. Exam: caries detected. [...] homecare and regular dental visits. NV: Restorative. 6MRCFoHerlinda sena RDH by lillie (05/03/2020 4:24 PM): Tooth Notes and Watches: Assessment & Plan Medications:XANAXPRILOSECLASIXPROZACMedication Changes:Added: * PROZAC* LASIX* PRILOSEC* XANAXAllergies:No Known Allergies (updated 05/03/2020) Name Value Range Interpretation Code Description Data Karine rce(s) Supporting Document(s) ID Date Data Source PAP REQUEST FOR SERVICE 01/26/2020 08:48:29 AM EDT [facility] Name Value Range Interpretation Code Description Data Karine rce(s) Supporting Document(s) Laboratory studies (set) PAP REQUEST FOR SERVICE [facility] ([facility]) Procedure Social History Code Duration Value Status Description Data Source(s ) Smoking 01/23/2020 12:00:00 AM EDT Former Smoker completed Former Smoker [facility] ([facility]) Vital Signs ID Date Data Source UNK Name Value Range Interpretation Code Description Data Source(s) Diastolic blood pressure 68 mm[Hg] 68 mm[Hg] eCW1 ([facility]) Systolic blood pressure 116 mm[Hg] 116 mm[Hg] e CW1 ([facility]) Body mass index (BMI) [Ratio] 30.36 kg/m2 30.36 kg/m2 [facility] ([facility]) Body height 62 [in_i] 62 [in_i] [facility] ([facility]) Body weight 166 [lb_av] 166 [lb_av] [facility] ([facility])
[2020-08-17 13:16] VITALS: BP 130/68
== END 2020-08-17 13:31 | disposition home or self-care (01) ==
LOC: M ED 09:17
DX: U07.1 COVID-19 (principal); I10 Essential (primary) hypertension; F41.9 Anxiety disorder, unspecified; Z87.891 Personal history of nicotine dependence; Z79.899 Other long term (current) drug therapy

== ENCOUNTER 2020-08-20 10:40 | Inpatient (IN) | payer BC ==
[~2020-08-20] VITALS: Ht 170.2 cm; Wt 76.0 kg
[~2020-08-20 10:40] MED LIST: ALPR0.5T3 PO; FLUO40CA PO; FURO20TA2 PO; MEDR1TAB PO; OMEP-218 PO; ONDA4TAB6 PO; TESS100C PO; ZITHTAB PO
--- OUTSIDE RECORDS SUMMARY | 2020-08-20 10:50 | CCD ---
Author Author [facility] Organization [facility] Address Unknown Phone Unavailable Care Team Providers Care Grout Machine Tender Name Role Phone LILO PERRY Unavailable Unavailable [...] is protected by Article 27-F of the [facility] Public Health law. If you continue you may have access to information: Regarding HIV / AIDS; Provided by facilities licensed or operated by the [facility] Office of Mental Health; or Provided by the [facility] Office for People With Developmental Disabilities. If such information is present, then the following [facility] mandated warning applies: This information has been [...] law may result in a fine or senior care sentence or both. A general authorization for the release of medical or other information is NOT sufficient authorization for further disc losure. Encounters Encounter Providers Location Date Indications Data Source(s ) Outpatient Attender: [facility] 05/07/2020 04:04:00 PM EDT [facility] Outpatient Attender: [facility] 05/04/2020 12:29:01 PM EDT [facility] Outpatient Attender: [facility] 05/03/2020 03:56:01 PM EDT [facility] Outpatient Attender: [facility] 05/03/2020 03:55:00 PM EDT [facility] Outpatient [address] [address], [facility] [id number] 01/23/2020 12:00:00 AM EDT eCW1 ([facility]) Medications Medication Brand Name Start Date Product Form Dose Route Admi nistrative Instructions Pharmacy Instructions Status Indications Reaction Description Data Source(s) benzonatate 100 MG Oral Capsule BENZONATATE 08/17/2020 12:00:00 AM EST capsule 21 TAKE ONE CAPSULE BY MOUTH THREE TIMES A DAY FOR COUGH TAKE ONE CAPSULE BY MOUTH THREE TIMES A DAY FOR COUGH SOLD: 08/18/2020 [facility] 4 mg 08/17/2020 12:00:00 AM EST tablet,disintegrating 8 TAKE ONE TABLET BY MOUTH EVERY 6-8 HOURS NEEDED FOR NAUSEA AND VOMITING TAKE ONE TABLET BY MOUTH EVERY 6-8 HOURS NEEDED FOR NAUSEA AND VOMITING SOLD: 08/18/2020 [facility] 4 mg 08/16/2020 12:00:00 AM EST tablets,dose [...] type / Coverage type Policy ID Covered libertarian ID Covered libertarian's relationship to sparks Policy [place] Plan Information [place] PPO 302/307 [id number] SP [id number] [employer] BCBS P UNAVAILABLE S UNAV AILABLE ANSI-Commercial [id number] [facility] [id number] SP [id number] [facility] O [id number] S [id number] [facility] [id number] SP [id number] SELF PAY P SELF PAY S SELF PAY EXCELLUS BCBS P [id number] S [id number] [id number] BLUE CROSS POPE PLAN [id number] SP [id number] [facility] BLUE [id number] SP [id number] Problems, Conditions, and Diagnoses Code Display Name Description Problem Type Effective Dates Data Source(s) Z01.419 Gynecological examination normal Encount er for gynecological examination without abnormal finding Problem 01/19/2020 12:00:00 AM EDT eCW1 ([facility]) Results ID Date Data Source 134 08/10/2020 12:00:00 AM EST [facility] Name Value Range Interpretation Code Description Data Karine rce(s) Supporting Document(s) SARS-CoV2 Rapid Antigen Positive [facility] and reported by [facility]. ID Date Data Source [id number] 07/30/2020 12:00:00 AM EST [facility] Name Value Range Interpretation Code Description Data Karine rce(s) Supporting Document(s) SARS-CoV2 Rapid Antigen Negative [facility] This [facility] and reported by [facility]. ID Date Data Source [id number] 05/03/2020 03:27:52 PM EDT [facility]. Family History:Diabetes (Mother, Maternal Grandmother)Cancer - uturin; lung (Mother)Heart disease (Maternal Grandmother)Social/Personal History: Smoking Status: former smokerYear Quit: 2014Do you vape? YesChief Complaint: Routine CleaningVisit Type: ExamProblem list reviewed during this update.No known problems.Current Medications: * XANAX * PRILOSEC * LASIX * PROZAC Medication list reviewed during this update.Allergy list reviewed during this update.No known allergies.Past Medical History:(reviewed - no changes required) [facility] Dental Chart: Procedures:Type - CDT Code - Description B - (D0150) Comprehensive oral evaluation - new or established patient (Performed by Douglas Tomas DDS) B - (D1110) Prophylaxis, adult (Performed by Herlinda Maria RDH) B - (D0210) Intraoral, complete series of radiographic images (Performed by Herlinda Maria RDH) Treatments:Type - CDT Code - Description T - (D2392) Resin-based composite, 2 surfaces, posterior on Tooth # 3 on Tooth Surface [place] (Performed by Herlinda Maria RDH) T - (D2391) Resin- based composite - one surface, posterior on Tooth # 14 on Tooth Surface B (Performed by Herlinda Maria RDH) T - (D2391) Resin-based composite - one surface, posterior on Tooth # 5 on Tooth Surface B (Performed by Herlinda Maria RDH) Existing:Type - CDT Code - Description[E] Amalgam Rastafari On #2 Surface O, #28 Surface O, #3 Surface O, #31 Surface O[E] Root Canal On #4 Region A[E] Resin-Based Composite - Direct On #10 Surface L, #12 Surface DO, #14 Surface O, #2 Surface DL, #20 Surface DO, #21 Surface O, #31 Surface DLMB, #5 Surface OD, #7 Surface L, #8 Surface ML, #9 Surface ML[E] Missing - [place] and Root On #1 Surface O Region XR, #16 Surface O Region XR, #17 Surface O Region XR, #18 Surface O Region XR, #19 Surface O Region XR, #30 Surface O Region XR, #32 Surface O Region XR[E] [place] - 3/4 Cast Predominantly Base Metal On #4 Chart Notes:lilo (May 04 2020 12:27PM): [facility](-). CC: none. Reviewed Xrays. Exam: caries [...] homecare and regular dental visits. NV: Restorative. Herlinda HOBSON, Herlinda moreira (05/03/2020 4:24 PM): Tooth Notes and Watches: Assessment & Plan Medications:XANAXPRILOSECLASIXPROZACMedication Changes:Added: * PROZAC* LASIX* PRILOSEC* XANAXAllergies:No Known Allergies (updated 05/03/2020) Name Value Range Interpretation Code Description Data Karine rce(s) Supporting Document(s) ID Date Data Source PAP REQUEST FOR SERVICE 01/26/2020 08:48:29 AM EDT [facility] ([facility]) Name Value Range Interpretation Code Description Data Karine rce(s) Supporting Document(s) Laboratory studies (set) PAP REQUEST FOR SERVICE [facility] ([facility]) Procedure Social History Code Duration Value Status Description Data Source(s ) Smoking 01/23/2020 12:00:00 AM EDT Former Smoker completed Former Smoker [facility] ([facility]) Vital Signs ID Date Data Source UNK Name Value Range Interpretation Code Description Data Source(s) Diastolic blood pressure 68 mm[Hg] 68 mm[Hg] eCW1 ([facility]) Systolic blood pressure 116 mm[Hg] 116 mm[Hg] e CW1 ([facility]) Body mass index (BMI) [Ratio] 30.36 kg/m2 30.36 kg/m2 eCW1 ([facility]) Body height 62 [in_i] 62 [in_i] eCW1 ([facility]) Body weight 166 [lb_av] 166 [lb_av] eCW1 ([facility])
--- OUTSIDE RECORDS SUMMARY | 2020-08-20 11:46 | CCD ---
Author Author [facility] Organization [facility] Address Unknown Phone Unavailable Care Team Providers Care Dry Mop Maker Name Role Phone LILO PERRY Unavailable Unavailable [...] is protected by Article 27-F of the [facility] Public Health law. If you continue you may have access to information: Regarding HIV / AIDS; Provided by facilities licensed or operated by the [facility] Office of Mental Health; or Provided by the [facility] Office for People With Developmental Disabilities. If such information is present, then the following [facility] mandated warning applies: This information has [...] law may result in a fine or assisted sentence or both. A general authorization for the release of medical or other information is NOT sufficient authorization for further disc losure. Encounters Encounter Providers Location Date Indications Data Source(s ) Outpatient Attender: [facility] 05/07/2020 04:04:00 PM EDT [facility] Outpatient Attender: [facility] 05/04/2020 12:29:01 PM EDT [facility] Outpatient Attender: [facility] 05/03/2020 03:56:01 PM EDT [facility] Outpatient Attender: [facility] 05/03/2020 03:55:00 PM EDT [facility] Outpatient [address] [address] 01/23/2020 12:00:00 AM EDT eCW1 ([facility]) Medications Medication Brand Name Start Date Product [...] Plan Information [place] PPO 302/307 [id number] SP [id number] [employer] BCBS P UNAVAILABLE S UNAV AILABLE ANSI-Commercial [id number] [facility] [id number] SP [id number] [facility] O [id number] S [id number] [facility] [id number] SP [id number] SELF PAY P SELF PAY S SELF PAY EXCELLUS BCBS P [id number] S [id number] [id number] BLUE CROSS POPE PLAN [id number] SP [id number] [facility] BLUE [id number] SP [id number] Problems, Conditions, and Diagnoses Code Display Name Description Problem Type Effective Dates Data Source(s) Z01.419 Gynecological examination normal Encount er for gynecological examination without abnormal finding Problem 01/19/2020 12:00:00 AM EDT eCW1 ([facility]) Results ID Date Data Source 134 08/10/2020 12:00:00 AM EST [facility] Name Value Range Interpretation Code Description Data Karine rce(s) Supporting Document(s) SARS-CoV2 Rapid Antigen Positive [facility] and reported by [facility]. ID Date Data Source [id number] 07/30/2020 12:00:00 AM EST [facility] Name Value Range Interpretation Code Description Data Karine rce(s) Supporting Document(s) SARS-CoV2 Rapid Antigen Negative [facility] This lab [facility] and reported by [facility]. ID Date Data Source [id number] 05/03/2020 03:27:52 PM EDT [facility] Patient History [facility]. Family History:Diabetes (Mother, Maternal Grandmother)Cancer [...] allergies.Past Medical History:(reviewed - no changes required) [facility] Dental Chart: Procedures:Type - CDT Code - [...] Existing:Type - CDT Code - Description[E] Amalgam Judaism On #2 Surface O, #28 Surface O, #3 Surface O, #31 Surface O[E] Root Canal On #4 Region A[E] Resin-Based Composite - Direct On #10 Surface L, #12 Surface DO, #14 Surface O, #2 Surface DL, #20 Surface DO, #21 Surface O, #31 Surface DLMB, #5 Surface OD, #7 Surface L, #8 Surface ML, #9 Surface ML[E] Missing - [place] and Root On #1 Surface O Region XR, #16 Surface O Region XR, #17 Surface O Region XR, #18 Surface O Region XR, #19 Surface O Region XR, #30 Surface O Region XR, #32 Surface O Region XR[E] [place] - 3/4 Cast Predominantly Base Metal On #4 Chart Notes:lilo (May 04 2020 12:27PM): [facility]). CC: none. Reviewed Xrays. Exam: caries detected. [...] REQUEST FOR SERVICE 01/26/2020 08:48:29 AM EDT [facility] ([facility]) Name Value Range Interpretation Code Description Data Karine rce(s) Supporting Document(s) Laboratory studies (set) PAP REQUEST FOR SERVICE [facility] ([facility]) Procedure Social History Code Duration Value Status Description Data Source(s ) Smoking 01/23/2020 12:00:00 AM EDT Former Smoker completed Former Smoker [facility] ([facility]) Vital Signs ID Date Data Source UNK Name Value Range Interpretation Code Description Data Source(s) Diastolic blood pressure 68 mm[Hg] 68 mm[Hg] eCW1 ([facility]) Systolic blood pressure 116 mm[Hg] 116 mm[Hg] e CW1 ([facility]) Body mass index (BMI) [Ratio] 30.36 kg/m2 30.36 kg/m2 eCW1 ([facility]) Body height 62 [in_i] 62 [in_i] eCW1 ([facility]) Body weight 166 [lb_av] 166 [lb_av] eCW1 ([facility])
--- NOTE | 2020-08-20 12:45 | REP ---
INDICATION: Coronavirus workup. COMPARISON: Comparison chest x-ray May 29, 2012. TECHNIQUE: Portable upright AP chest radiograph. FINDINGS: There are fairly extensive patchy bilateral predominantly peripheral alveolar infiltrates as a new finding. Heart is not enlarged. Pulmonary vasculature is not increased. No bony abnormality is seen.. IMPRESSION: Fairly extensive bilateral patchy infiltrate pattern consistent with COVID pneumonia.. <Electronically signed by Roshan Ruiz > 08/20/20 1396
[2020-08-20 13:02] LABS: BASO # 0.1 10^3/uL (0.0-0.2); BASO % 0.6 % (0.0-1.0); EOS % 0.2 % (0.0-3.0); HEMATOCRIT 41.2 % (36.0-47.0); HEMOGLOBIN 13.4 g/dl (12.0-15.5); LYMPH # 1.5 10^3/uL (1.5-5.0); LYMPH % 9.5 % (24.0-44.0); MEAN CORPUSCULAR HEMOGLOBIN 29.7 pg (27.0-33.0); MEAN CORPUSCULAR HGB CONC 32.5 g/dl (32.0-36.5); MEAN CORPUSCULAR VOLUME 91.4 fl (80.0-96.0); MONO # 1.2 10^3/uL (0.0-0.8); MONO % 7.6 % (0.0-5.0); NEUTROPHILS # 12.6 10^3/uL (1.5-8.5); NEUTROPHILS % 78.3 % (36.0-66.0); PLATELET COUNT, AUTOMATED 370 10^3/uL (150-450); RED BLOOD COUNT 4.51 10^6/uL (4.00-5.40); WHITE BLOOD COUNT 16.1 10^3/uL (4.0-10.0)
[2020-08-20 13:24] LABS: ALBUMIN 2.9 GM/DL (3.2-5.2); ALT/SGPT 203 U/L (12-78); BILIRUBIN,TOTAL 0.4 MG/DL (0.2-1.0); BLOOD UREA NITROGEN 19 MG/DL (7-18); C REACTIVE PROTEIN QUANTITATIV 2.74 MG/DL (0.00-0.30); CALCIUM LEVEL 8.7 MG/DL (8.5-10.1); CARBON DIOXIDE LEVEL 30 MEQ/L (21-32); CHLORIDE LEVEL 102 MEQ/L (98-107); CK-MB VALUE MASS < 1.0 NG/ML (<3.6); CPK CREATINE PHOSPHOKINASE 40 U/L (26-192); CREATININE FOR GFR 0.88 MG/DL (0.55-1.30); FERRITIN 366 NG/ML (8-252); GLOMERULAR FILTRATION RATE > 60.0 (>58); GLUCOSE, FASTING 93 MG/DL (70-100); LDH LACTATE DEHYDROGENASE 476 U/L (84-246); POTASSIUM SERUM 3.3 MEQ/L (3.5-5.1); SODIUM LEVEL 140 MEQ/L (136-145); TOTAL PROTEIN 7.1 GM/DL (6.4-8.2); TROPONIN I < 0.02 NG/ML (< 0.10)
[2020-08-20 14:36] LABS: NT-PRO BNP 209 PG/ML (<125)
[2020-08-20] MEDS ORDERED: TESS100C PO (14:37)
[2020-08-20] MEDS ORDERED: MEDR4PAK PO (14:37)
[2020-08-20] MEDS ORDERED: D3 M1CAP2 PO (14:37)
--- OUTSIDE RECORDS SUMMARY | 2020-08-20 14:43 | CCD ---
Author Author [facility] Organization [facility] Address Unknown Phone Unavailable Care Team Providers Care Braid Pattern Setter Name Role Phone LILO PERRY Unavailable Unavailable [...] is protected by Article 27-F of the [facility] Public Health law. If you continue you may have access to information: Regarding HIV / AIDS; Provided by facilities licensed or operated by the [facility] Office of Mental Health; or Provided by the [facility] Office for People With Developmental Disabilities. If such information is present, then the following [facility] mandated warning applies: This information has been [...] law may result in a fine or detention sentence or both. A general authorization for the release of medical or other information is NOT sufficient authorization for further disc losure. Encounters Encounter Providers Location Date Indications Data Source(s ) Outpatient Attender: [facility] 05/07/2020 04:04:[address] [facility] Outpatient Attender: [facility] 05/04/2020 12:29:[address] [facility] Outpatient Attender: [facility] 05/03/2020 03:56:[address] [facility] Outpatient Attender: [facility] 05/03/2020 03:55:[address] [facility] Outpatient [address] [id number] 01/23/2020 12:00:00 AM EDT eCW1 (Critical access hospital) Medications Medication Brand Name Start Date Product [...] Plan Information BCBS [place] PPO 302/307 [id number] SP [id number] [employer] BCBS P UNAVAILABLE S UNAV AILABLE ANSI-Commercial [id number] [facility] [id number] SP [id number] [facility] O [id number] S [id number] [facility] [id number] SP [id number] SELF PAY P SELF PAY S SELF PAY EXCELLUS BCBS P [id number] S [id number] BLUE [employer] POPE PLAN [id number] SP [id number] [facility] BLUE [id number] SP [id number] Problems, Conditions, and Diagnoses Code Display Name Description Problem Type Effective Dates Data Source(s) Z01.419 Gynecological examination normal Encount er for gynecological examination without abnormal finding Problem 01/19/2020 12:00:00 AM EDT eCW1 ([facility]) Results ID Date Data Source [id number] 08/10/2020 12:00:00 AM EST [facility] Name Value Range Interpretation Code Description Data Karine rce(s) Supporting Document(s) SARS-CoV2 Rapid Antigen Positive [facility] This lab was ordered by [facility] and reported by [facility]. ID Date Data Source 930 07/30/2020 12:00:00 AM EST [facility] Name Value Range Interpretation Code Description Data Karine rce(s) Supporting Document(s) SARS-CoV2 Rapid Antigen Negative [facility] This lab was ordered by [facility] and reported by [facility]. ID Date Data Source [id number] 05/03/2020 03:27:[address] [facility] Patient History [facility]. Family History:Diabetes (Mother, Maternal Grandmother)Cancer - uturin; lung (Mother)Heart disease (Maternal Grandmother)Social/Personal History: Smoking Status: former smokerYear Quit: 2014Do you vape? YesChief Complaint: Routine CleaningVisit Type: ExamProblem list reviewed during this update.No known problems.Current Medications: * XANAX * PRILOSEC * LASIX * PROZAC Medication list reviewed during this update.Allergy list reviewed during this update.No known allergies.Past Medical History:(reviewed - no changes required) [facility] Dental Chart: Procedures:Type - CDT Code [...] Existing:Type - CDT Code - Description[E] Amalgam [place] On #2 Surface O, #28 Surface O, #3 Surface O, #31 Surface O[E] Root Canal On #4 Region A[E] Resin-Based Composite - Direct On #10 Surface L, #12 Surface DO, #14 Surface O, #2 Surface DL, #20 Surface DO, #21 Surface O, #31 Surface DLMB, #5 Surface OD, #7 Surface L, #8 Surface ML, #9 Surface ML[E] Missing - [place] and Root On #1 Surface O Region XR, #16 Surface O Region XR, #17 Surface O Region XR, #18 Surface O Region XR, #19 Surface O Region XR, #30 Surface O Region XR, #32 Surface O Region XR[E] [place] - 3/4 Cast Predominantly Base Metal On #4 Chart Notes:lilo (May 04 2020 12:27PM): ON LICENSE OF [facility](-). CC: none. Reviewed Xrays. Exam: [...] REQUEST FOR SERVICE 01/26/2020 08:48:29 AM EDT [facility] ([facility]) Name Value Range Interpretation Code Description Data Karine rce(s) Supporting Document(s) Laboratory studies (set) PAP REQUEST FOR SERVICE [facility] ([facility]) Procedure Social History Code Duration Value Status Description Data Source(s ) Smoking 01/23/2020 12:00:00 AM EDT Former Smoker completed Former Smoker [facility] ([facility]) Vital Signs ID Date Data Source UNK Name Value Range Interpretation Code Description Data Source(s) Diastolic blood pressure 68 mm[Hg] 68 mm[Hg] eCW1 ([facility]) Systolic blood pressure 116 mm[Hg] 116 mm[Hg] e CW1 ([facility]) Body mass index (BMI) [Ratio] 30.36 kg/m2 30.36 kg/m2 eCW1 ([facility]) Body height 62 [in_i] 62 [in_i] eCW1 ([facility]) Body weight 166 [lb_av] 166 [lb_av] eCW1 ([facility])
[2020-08-20] MEDS ORDERED: ACETAMINOPHEN TAB 650MG DOSE (2X325MG) PO PRN (14:45)
[2020-08-20 14:57] LABS: HEPATITIS B SURFACE ANTIGEN NEGATIVE (NEGATIVE)
[2020-08-20 15:24] LABS: HEPATITIS B CORE ANTIBODY IGM NEGATIVE (NEGATIVE); HEPATITIS C VIRUS ABY INDEX < 0.0 INDEX (<0.8)
[2020-08-20 15:27] LABS: HEPATITIS A ANTIBODY IGM NEGATIVE (NEGATIVE)
[2020-08-20 15:34] VITALS: BP 121/68
--- NOTE | 2020-08-20 15:35 | HPEPDOC ---
[facility] Medical History & Physical Date of Admission Aug 20, 2020 Date of Service: Aug 20, 2020 History and Physical Chief complaint: Short of breath History of present illness: Patient is a 50-year-old female who presented to the emergency room after experiencing worsening shortness of breath and noted that her pulse oximeter was reading less than 92% while at home. Patient was diagnosed with COVID 19 on 08/10/2020. She remained at home. Noted that her shortness of breath has been more progressive and worse with exertion. Patient reports a cough that is mostly dry, without any significant expectoration. She reports some pleuritic chest pain. Has not experience fevers but does report chills. She reports that she has been nauseous and retching. Has not had any significant vomiting, no abdominal pain. Reports some diarrhea as loose stools one episode today and 2 episodes yesterday. No evidence of blood. Denies any urinary discomfort. Patient reports her appetite is poor and her weight is unchanged. Patient had called her primary care provider on 08/16, Dr. Odell. She was prescribed Azithromycin and a Solumedrol dose pack. Past Medical History: Anxiety / Panic attacks HTN Fibrocystic breast disease Past Surgical History: [place] tooth extraction Congenital hip dislocation (s/p relocation) Allergies: See below Medications: See below Family History: - Mother with a history of lung cancer and uterine cancer - Father with an unknown past medical history Social History: - Denies the use of alcohol or illicit drugs; patient reports that she quit smoking in the past, however, has been if anything regularly. Has only stopped 1 week ago when she was diagnosed with: - Denies recent travel or sick contacts - Lives alone - Occupation; patient works at [employer] Review of Systems: 10 point review of systems complete, all negative otherwise stated in HPI Physical exam: - Vitals: BP [106/54], HR [91], RR [18], Sat [94%RA], Temp [99.9F] - General: Lying in bed, Speaking in full sentences, AAOx3 - HEENT: NC, AT, PERRLA - CVS: RRR, +S1S2 - Lungs: Fair air entry bilaterally, No appreciable wheezing / rales / rhonchi - Abdomen: Soft, Non-distended, Non-tender - Extremities: No lower extremity edema, No calf tenderness - Neuro: No focal motor or sensory deficit - Skin: No visible rashes Labs: See below Imaging: CXR 08/20: Fairly extensive bilateral patchy infiltrate pattern consistent with COVID pneumonia. EKG: See below Assessment and Plan: Shortness of breath - likely 2/2 COVID19 pneumonia, less likely 2/2 superimposed bacterial pneumonia - Patient presented to the hospital with complaints of SOB, worse with exertion - At home was noted to have a pulse ox < 92% - COVID positive on 08/10; confirmed with [facility] - Inflammatory markers not significantly elevated; will trend - Imaging noted above - Will start Dexamethasone (Day #1) - Will start Ceftriaxone and Doxycycline (Day #1); will trend procalcitonin - Will start Incentive spirometry / acapella / Mucinex / Tylenol Leukocytosis - Possibly 2/2 corticosteroid use, possibly 2/2 superimposed bacterial infection - Will check UA / Blood cultures / Sputum cultures - Will check procalcitonin - See above (Antibiotics) Transaminitis - Will check hepatitis profile - Will check BNP - Will check ECHO HTN - BP well controlled - Will hold Furosemide for now Depression / Anxiety / Panic attacks - c/w Fluoxetine and Alprazolam Fibrocystic breast disease Vitamin D deficiency - c/w Supplementation GERD - Will c/w Omeprazole DVT prophylaxis - Will start Lovenox weight based therapeutic dosing Vital Signs Vital Signs Date Time Temp Pulse Resp B/P (MAP) Pulse Ox O2 Delivery O2 Flow Rate FiO2 08/20/20 15:34 101.0 97 21 121/68 (85) 94 Room Air Laboratory Data Labs 24H Laboratory Tests 2 08/20/20 12:14: Immature Granulocyte % (Auto) 3.8H, Neutrophils (%) (Auto) 78.3H, Lymphocytes (%) (Auto) 9.5L, Monocytes (%) (Auto) 7.6H, Eosinophils (%) (Auto) 0.2, Basophils (%) (Auto) 0.6, Neutrophils # (Auto) 12.6H, Lymphocytes # (Auto) 1.5, Monocytes # (Auto) 1.2H, Eosinophils # (Auto) 0.0, Basophils # (Auto) 0.1, Nucleated Red Blood Cells % (auto) 0.0, D-Dimer, Quantitative 584.12H, Anion Gap 8, Glomerular Filtration Rate > 60.0, Lactic Acid Level 2.0, Calcium Level 8.7, Ferritin 366H, Total Bilirubin 0.4, Aspartate Amino Transf (AST/SGOT) 150H, Alanine Aminotransferase (ALT/SGPT) 203H, Alkaline Phosphatase 130H, Lactate Dehydrogenase 476H, Total Creatine Kinase 40, Creatine Kinase MB < 1.0, Creatine Kinase MB Relative Index 2.50, Troponin I < 0.02, C-Reactive Protein, Quantitative 2.74H, BC-Erm-F-Type Natriuretic Peptide 209H, Total Protein 7.1, Albumin 2.9L, Albumin/Globulin Ratio 0.7L, Hepatitis A IgM Antibody NEGATIVE, Hepatitis B Surface Antigen NEGATIVE, Hepatitis B Core IgM Antibody NEGATIVE, Hepatitis C Antibody Index < 0.0 08/20/20 12:37: POC pH (Misc Panel) 7.567H, POC Base Excess (Misc Panel) 4.0H, POC Saturated Percent O2 (Misc) 93L, POC pO2 (Misc Panel) 56.0L, POC pCO2 (Misc Panel) 29.0L, POC HCO3 (Misc Panel) 26.4H, POC Total CO2 (Misc Panel) 27.0 CBC/BMP Laboratory Tests 08/20/20 12:14 Microbiology Microbiology 08/20/20 Blood Culture, Received Pending 08/20/20 Blood Culture, Received Pending Home Medications Scheduled Alprazolam (Alprazolam) 0.5 Mg Tablet, 0.5 MG PO BID Azithromycin (Zithromax) 250 Mg Tablet, 250 MG PO ASDIRECTED 2 the first day followed by 1 for days 2-5, TOOK LAST DOSE OF COURSE 08/20/20 Cholecalciferol (Vitamin D3) (Vitamin D3) 125 Mcg Capsule, 5,000 UNITS PO DAILY Fluoxetine Hcl (Fluoxetine HCl) 40 Mg Capsule, 40 MG PO DAILY Furosemide (Furosemide) 20 Mg Tablet, 20 MG PO DAILY Methylprednisolone (Medrol) 4 Mg Tab.ds.pk, 4 MG PO ASDIRECTED Omeprazole (Omeprazole) 20 Mg Capsule.dr, 20 MG PO DAILY Scheduled PRN Benzonatate (Tessalon Perle) 100 Mg Capsule, 100 MG PO TID PRN for COUGH Allergies Coded Allergies: No Known Allergies (Unverified , 08/17/20) SONYA RIOS MD Aug 20, 2020 15:35
[2020-08-20] MEDS: cefTRIAXone SOD 1 GM in D5W MINI-BAG PLUS 50 ML IV SCH (15:47)
[2020-08-20] MEDS: dexameTHASONE 4 MG/ML 1ML VIAL (J1100 PER 1MG) IV SCH (15:47)
[2020-08-20] MEDS: VITAMIN D 1,000 INTERNATIONAL UNITS TABLET PO SCH (15:47)
[2020-08-20 16:00] VITALS: O2SAT 94
[2020-08-20 16:12] LABS: APPEARANCE, URINE CLEAR (CLEAR); BACTERIA, URINE AUTO 1+ (NEGATIVE); BILIRUBIN, URINE AUTO NEGATIVE (NEGATIVE); BLOOD, URINE BLOOD 1+ (NEGATIVE); COLOR, URINE YELLOW (YELLOW); GLUCOSE, URINE (UA) AUTO NEGATIVE (NEGATIVE); KETONE, URINE AUTO TRACE mg/dL (NEGATIVE); LEUKOCYTE ESTERASE, URINE AUTO NEGATIVE (NEGATIVE); MUCUS, URINE SMALL (NEGATIVE); NITRITE, URINE AUTO NEGATIVE (NEGATIVE); PROTEIN, URINE AUTO 1+ mg/dL (NEGATIVE); RBC, URINE AUTO 15 /HPF (0-3); SQUAMOUS EPITHELIAL CELL UR AU 2 /HPF (0-6); WBC, URINE AUTO 5 /HPF (0-3)
[2020-08-20] MEDS: DOXYCYCLINE HYCLATE 100 MG in D5W MINI-BAG PLUS 100 ML IV SCH (16:50)
[2020-08-20] MEDS: ENOXAPARIN 40MG/0.4ML SYRINGE (J1650 PER 10MG) SC SCH (16:50)
[2020-08-20 19:43] VITALS: BP 111/82
[2020-08-20 20:00] VITALS: O2SAT 95
[2020-08-20] MEDS: guaiFENesin ER 600 MG TAB PO SCH (20:49)
[2020-08-20] MEDS: ALPRAZolam 0.5 MG TAB PO SCH (20:49)
[2020-08-20] MEDS ORDERED: FAMOTIDINE 20 MG TAB PO SCH (21:00)
[2020-08-21] VITALS (7 sets, daily range): BP systolic 109–123; BP diastolic 59–70; O2SAT 90–95
[2020-08-21] MEDS: DOXYCYCLINE HYCLATE 100 MG in D5W MINI-BAG PLUS 100 ML IV SCH ×2 (05:16→15:33)
[2020-08-21] MEDS: ENOXAPARIN 40MG/0.4ML SYRINGE (J1650 PER 10MG) SC SCH ×2 (05:16→17:00)
[2020-08-21 06:51] LABS: HEMATOCRIT 41.4 % (36.0-47.0); HEMOGLOBIN 13.4 g/dl (12.0-15.5); MEAN CORPUSCULAR HEMOGLOBIN 29.8 pg (27.0-33.0); MEAN CORPUSCULAR HGB CONC 32.4 g/dl (32.0-36.5); MEAN CORPUSCULAR VOLUME 92.2 fl (80.0-96.0); PLATELET COUNT, AUTOMATED 364 10^3/uL (150-450); RED BLOOD COUNT 4.49 10^6/uL (4.00-5.40); WHITE BLOOD COUNT 12.6 10^3/uL (4.0-10.0)
[2020-08-21 07:01] LABS: INR 1.39; PROTHROMBIN TIME 17.4 SECONDS (12.5-14.3)
[2020-08-21 07:09] LABS: ATYPICAL LYMPH 1 % (0-5); LYMPHOCYTES 11 % (16-44); METAMYELOCYTES 1 % (0-0); MONOCYTES 4 % (0-5); NEUTROPHILS 83 % (28-66); PLATELET ESTIMATE NORMAL (NORMAL)
[2020-08-21 07:16] LABS: ALBUMIN 2.8 GM/DL (3.2-5.2); ALT/SGPT 193 U/L (12-78); BILIRUBIN,DIRECT 0.2 MG/DL (0.0-0.2); BILIRUBIN,TOTAL 0.5 MG/DL (0.2-1.0); BLOOD UREA NITROGEN 16 MG/DL (7-18); CALCIUM LEVEL 8.6 MG/DL (8.5-10.1); CARBON DIOXIDE LEVEL 30 MEQ/L (21-32); CHLORIDE LEVEL 100 MEQ/L (98-107); CPK CREATINE PHOSPHOKINASE 31 U/L (26-192); CREATININE FOR GFR 0.73 MG/DL (0.55-1.30); FERRITIN 343 NG/ML (8-252); GLOMERULAR FILTRATION RATE > 60.0 (>58); GLUCOSE, FASTING 111 MG/DL (70-100); LDH LACTATE DEHYDROGENASE 337 U/L (84-246); MAGNESIUM LEVEL 2.4 MG/DL (1.8-2.4); NT-PRO BNP 295 PG/ML (<125); POTASSIUM SERUM 3.6 MEQ/L (3.5-5.1); SODIUM LEVEL 140 MEQ/L (136-145); TOTAL PROTEIN 6.8 GM/DL (6.4-8.2); TROPONIN I < 0.02 NG/ML (< 0.10)
[2020-08-21] MEDS: ALPRAZolam 0.5 MG TAB PO SCH ×2 (08:22→21:17)
[2020-08-21] MEDS: FLUoxetine 20 MG CAP PO SCH (08:22)
[2020-08-21] MEDS: VITAMIN D 1,000 INTERNATIONAL UNITS TABLET PO SCH (08:22)
[2020-08-21] MEDS: OMEPRAZOLE 20 MG CAP PO SCH (08:22)
[2020-08-21] MEDS: guaiFENesin ER 600 MG TAB PO SCH ×2 (08:22→21:17)
[2020-08-21] MEDS: dexameTHASONE 4 MG/ML 1ML VIAL (J1100 PER 1MG) IV SCH (14:41)
[2020-08-21] MEDS: cefTRIAXone SOD 1 GM in D5W MINI-BAG PLUS 50 ML IV SCH (14:41)
--- NOTE | 2020-08-21 15:45 | ECGEPIP ---
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 Electronically Signed on 08-21-2020 15:44:50 EST by Andrei Juarez
--- NOTE | 2020-08-21 19:52 | IPNPDOC ---
Date Seen The patient was seen on 08/21/20. Progress Note SUBJECTIVE: 50 yo F with a pmxh of HTN, anxiety who was diagnosed with COVID-19 on 08/10/20. Seen and examined at bedside. Doing well, no acute events overnight. Denies CP, sob, palpitations, n//v/d. OBJECTIVE PHYSICAL EXAMINATION: VITAL SIGNS: please see below General: NAD, comfortable HEENT: PERRLA, EOMI, sclerae clear Neck: supple, normal ROM, no JVD Respiratory: lungs CTAB, no wheeze, no rales, no crackles CVS: RRR, normal S1, S2, no murmurs Abdo: soft, no masses, no hepatosplenomegaly, BS+, no rebound tenderness Extremities: no edema, pulses 2+ MSK: no joint deformities, normal ROM Neuro: no focal neuro deficits, moving all 4 extremities, CN2-12 intact. Strength 5/5 in all 4 extremities. No nystagmus. Psych: calm, cooperative, AAO x 3 LABORATORY DATA, IMAGING STUDIES, MICROBIOLOGY: Please see below. Echocardiogram: ordered, pending read DVT prophylaxis ordered?: lovenox 0.5 mg/kg q12h ASSESSMENT AND PLAN: PROBLEMS: Shortness of breath - likely 2/2 COVID19 pneumonia, less likely 2/2 superimposed bacterial pneumonia - Patient presented to the hospital with complaints of SOB, worse with exertion - At home was noted to have a pulse ox < 92% - COVID positive on 08/10; confirmed with [facility] - Inflammatory markers not significantly elevated; will trend - Dexamethasone (Day #2) - Ceftriaxone and Doxycycline (Day #2); will trend procalcitonin - Will start Incentive spirometry / acapella / Mucinex / Tylenol Leukocytosis - Possibly 2/2 corticosteroid use, possibly 2/2 superimposed bacterial infection - UA not suggestive of UTI. Blood cx prelim neg after 24 hours. - Procal 0.09, 0.10. - abx as above Transaminitis - Will check hepatitis profile - BNP 295 - Echo performed, awaiting read. HTN - BP well controlled - Will hold Furosemide for now Depression / Anxiety / Panic attacks - c/w Fluoxetine and Alprazolam Fibrocystic breast disease Vitamin D deficiency - c/w Supplementation GERD - Will c/w Omeprazole DVT prophylaxis - Will start Lovenox weight based therapeutic dosing VS, I&O, 24H, [place] Vital Signs/I&O Vital Signs Date Time Temp Pulse Resp B/P (MAP) Pulse Ox O2 Delivery O2 Flow Rate FiO2 08/21/20 16:00 93 Room Air 08/21/20 14:41 18 08/21/20 12:28 98.7 85 109/59 (76) I&O- Last 24 Hours up to 6 AM 08/21/20 06:00 Intake Total 510 ml Output Total 500 ml Balance 10 ml Laboratory Data 24H LABS Laboratory Tests 2 08/21/20 05:48: Immature Granulocyte % (Auto) , Neutrophils (%) (Auto) , Nucleated Red Blood Cells % (auto) 0.0, Neutrophils 83H, Lymphocytes (Manual) 11L, Monocytes (Manual) 4, Metamyelocytes 1H, Atypical Lymphocytes 1, Red Blood Cell Morphology NORMAL, Platelet Estimate NORMAL, Prothrombin Time 17.4H, Prothromb Time International Ratio 1.39, Activated Partial Thromboplast Time 36.0, Fibrinogen 667H, Anion Gap 10, Glomerular Filtration Rate > 60.0, Calcium Level 8.6, Magnesium Level 2.4, Ferritin 343H, Total Bilirubin 0.5, Direct Bilirubin 0.2, Aspartate Amino Transf (AST/SGOT) 96H, Alanine Aminotransferase (ALT/SGPT) 193H, Alkaline Phosphatase 128H, Lactate Dehydrogenase 337H, Total Creatine Kinase 31, Troponin I < 0.02, MQ-Bmc-O-Type Natriuretic Peptide 295H, Total Protein 6.8, Albumin 2.8L, Albumin/Globulin Ratio 0.7L, Procalcitonin 0.10 CBC/BMP Laboratory Tests 08/21/20 05:48 Microbiology Microbiology 08/20/20 Blood Culture - Preliminary, Resulted No growth after 24 hours . All specim... 08/20/20 Blood Culture - Preliminary, Resulted No growth after 24 hours . All specim... TERRY GOODWIN MD Aug 21, 2020 19:52
[2020-08-22 00:50] VITALS: O2SAT 93
[2020-08-22 04:00] VITALS: BP 117/66
[2020-08-22 05:00] VITALS: O2SAT 94
[2020-08-22] MEDS: DOXYCYCLINE HYCLATE 100 MG in D5W MINI-BAG PLUS 100 ML IV SCH (05:17)
[2020-08-22] MEDS: ENOXAPARIN 40MG/0.4ML SYRINGE (J1650 PER 10MG) SC SCH (05:17)
[2020-08-22 06:27] LABS: HEMOGLOBIN 12.9 g/dl (12.0-15.5); MEAN CORPUSCULAR HEMOGLOBIN 29.8 pg (27.0-33.0); MEAN CORPUSCULAR HGB CONC 32.3 g/dl (32.0-36.5); MEAN CORPUSCULAR VOLUME 92.4 fl (80.0-96.0); PLATELET COUNT, AUTOMATED 364 10^3/uL (150-450); RED BLOOD COUNT 4.33 10^6/uL (4.00-5.40); WHITE BLOOD COUNT 14.7 10^3/uL (4.0-10.0)
[2020-08-22 06:52] LABS: INR 1.12; PROTHROMBIN TIME 14.7 SECONDS (12.5-14.3)
[2020-08-22 06:53] LABS: PARTIAL THROMBOPLASTIN TIME 30.4 SECONDS (24.2-38.5)
[2020-08-22 06:58] LABS: ALBUMIN 2.4 GM/DL (3.2-5.2); ALT/SGPT 213 U/L (12-78); BILIRUBIN,DIRECT 0.1 MG/DL (0.0-0.2); BILIRUBIN,TOTAL 0.4 MG/DL (0.2-1.0); BLOOD UREA NITROGEN 21 MG/DL (7-18); CALCIUM LEVEL 8.5 MG/DL (8.5-10.1); CARBON DIOXIDE LEVEL 30 MEQ/L (21-32); CHLORIDE LEVEL 103 MEQ/L (98-107); CPK CREATINE PHOSPHOKINASE 22 U/L (26-192); CREATININE FOR GFR 0.78 MG/DL (0.55-1.30); FERRITIN 307 NG/ML (8-252); FREE T4 1.49 NG/DL (0.76-1.46); GLOMERULAR FILTRATION RATE > 60.0 (>58); GLUCOSE, FASTING 118 MG/DL (70-100); LDH LACTATE DEHYDROGENASE 319 U/L (84-246); MAGNESIUM LEVEL 2.2 MG/DL (1.8-2.4); NT-PRO BNP 174 PG/ML (<125); POTASSIUM SERUM 3.6 MEQ/L (3.5-5.1); SODIUM LEVEL 140 MEQ/L (136-145); THYROID STIMULATING HORMONE 0.549 uIU/ML (0.358-3.740); TOTAL PROTEIN 6.3 GM/DL (6.4-8.2); TROPONIN I < 0.02 NG/ML (< 0.10)
[2020-08-22 07:04] LABS: LYMPHOCYTES 6 % (16-44); METAMYELOCYTES 4 % (0-0); MONOCYTES 3 % (0-5); NEUTROPHILS 86 % (28-66); PLATELET ESTIMATE NORMAL (NORMAL)
[2020-08-22 08:30] VITALS: BP 116/59
[2020-08-22] MEDS: FLUoxetine 20 MG CAP PO SCH (09:26)
[2020-08-22] MEDS: OMEPRAZOLE 20 MG CAP PO SCH (09:26)
[2020-08-22] MEDS: guaiFENesin ER 600 MG TAB PO SCH (09:26)
[2020-08-22] MEDS: ALPRAZolam 0.5 MG TAB PO SCH (09:27)
[2020-08-22] MEDS: VITAMIN D 1,000 INTERNATIONAL UNITS TABLET PO SCH (09:27)
[2020-08-22] MEDS ORDERED: OMEP-218 PO (13:18)
[2020-08-22] MEDS ORDERED: DEXA6TAB PO (13:18)
[2020-08-22] MEDS ORDERED: DOXY-350 PO (13:18)
[2020-08-22] MEDS ORDERED: MUCI600T31 PO (13:18)
--- NOTE | 2020-08-22 13:42 | DS.PDOC ---
Discharge Summary General Date of Admission Aug 20, 2020 at 14:32 Date of Discharge 08/22/20 Discharge Summary PROCEDURES PERFORMED DURING STAY: None ADMITTING DIAGNOSES: COVID-19 pneumonia Transaminitis HTN Depression/anxiety Vitamin D deficiency GERD Fibrocystic breast disease DISCHARGE DIAGNOSES: COVID-19 pneumonia Transaminitis HTN Depression/anxiety Vitamin D deficiency GERD Fibrocystic breast disease COMPLICATIONS/CHIEF COMPLAINT: Covid +. HISTORY OF PRESENT ILLNESS: Patient is a 50-year-old female who presented to the emergency room after experiencing worsening shortness of breath and noted that her pulse oximeter was reading less than 92% while at home. Patient was diagnosed with COVID 19 on 08/10/2020. She remained at home. Noted that her shortness of breath has been more progressive and worse with exertion. Patient reports a cough that is mostly dry, without any significant expectoration. She reports some pleuritic chest pain. Has not experience fevers but does report chills. She reports that she has been nauseous and retching. Has not had any significant vomiting, no abdominal pain. Reports some diarrhea as loose stools one episode today and 2 episodes yesterday. No evidence of blood. Denies any urinary discomfort. Patient reports her appetite is poor and her weight is unchanged. Patient had called her primary care provider on 08/16, Dr. Odell. She was prescrib ed Azithromycin and a Solumedrol dose pack. HOSPITAL COURSE: . DISCHARGE MEDICATIONS: Please see below. ALLERGIES: Please see below. PHYSICAL EXAMINATION ON DISCHARGE: VITAL SIGNS: please see below General: NAD, comfortable HEENT: PERRLA, EOMI, sclerae clear Neck: supple, normal ROM, no JVD Respiratory: lungs CTAB, no wheeze, no rales, no crackles CVS: RRR, normal S1, S2, no murmurs Abdo: soft, no masses, no hepatosplenomegaly, BS+, no rebound tenderness Extremities: no edema, pulses 2+ MSK: no joint deformities, normal ROM Neuro: no focal neuro deficits, moving all 4 extremities, CN2-12 intact. Strength 5/5 in all 4 extremities. No nystagmus. Psych: calm, cooperative, AAO x 3 LABORATORY DATA: Please see below. IMAGING: CXR (08/20/20): Fairly extensive bilateral patchy infiltrate pattern consistent with COVID pneumonia. PROGNOSIS: good ACTIVITY: [As tolerated]. DIET: 2G DISCHARGE PLAN: DC home with supplemental O2 with portability DISPOSITION: DC home DISCHARGE INSTRUCTIONS: . Please follow-up with your primary care doctor within 3-5 days . Please taking medications as prescribed. . If you develop bleeding, chest pain, shortness of breath, seizures, nausea, fevers, or otherwise worsening of your symptoms, please call 911 or return to the nearest emergency room ITEMS TO FOLLOWUP ON ON OUTPATIENT: Echo report Repeat liver enzymes. DISCHARGE CONDITION: Stable TIME SPENT ON DISCHARGE: 35 minutes Vital Signs/I&Os Vital Signs Date Time Temp Pulse Resp B/P (MAP) Pulse Ox O2 Delivery O2 Flow Rate FiO2 08/22/20 08:30 98.1 75 17 116/59 (78) 95 Room Air I&O- Last 24 Hours up to 6 AM 08/22/20 06:00 Intake Total 1290 ml Output Total 750 ml Balance 540 ml Laboratory Data Labs 24H Laboratory Tests 2 08/22/20 05:56: Immature Granulocyte % (Auto) , Neutrophils (%) (Auto) , Nucleated Red Blood Cells % (auto) 0.0, Neutrophils 86H, Band Neutrophils 1, Lymphocytes (Manual) 6L, Monocytes (Manual) 3, Metamyelocytes 4H, Red Blood Cell Morphology NORMAL, Platelet Estimate NORMAL, Prothrombin Time 14.7H, Prothromb Time International Ratio 1.12, Activated Partial Thromboplast Time 30.4, Fibrinogen 616H, Anion Gap 7L, Glomerular Filtration Rate > 60.0, Calcium Level 8.5, Magnesium Level 2.2, Ferritin 307H, Total Bilirubin 0.4, Direct Bilirubin 0.1, Aspartate Amino Transf (AST/SGOT) 103H, Alanine Aminotransferase (ALT/SGPT) 213H, Alkaline Phosphatase 116, Lactate Dehydrogenase 319H, Total Creatine Kinase 22L, Troponin I < 0.02, RZ-Iyg-C-Type Natriuretic Peptide 174H, Total Protein 6.3L, Albumin 2.4L, Albumin/Globulin Ratio 0.6L, Procalcitonin 0.05, Thyroid Stimulating Hormone (TSH) 0.549, Free Thyroxine 1.49H CBC/BMP Laboratory Tests 08/22/20 05:56 Microbiology Microbiology 08/20/20 Blood Culture - Preliminary, Resulted No growth after 24 hours . All specim... 08/20/20 Blood Culture - Preliminary, Resulted No growth after 24 hours . All specim... Discharge Medications Scheduled Alprazolam (Alprazolam) 0.5 Mg Tablet, 0.5 MG PO BID, (Reported) Azithromycin (Zithromax) 250 Mg Tablet, 250 MG PO ASDIRECTED, (Reported) 2 the first day followed by 1 for days 2-5, TOOK LAST DOSE OF COURSE 08/20/20 Cholecalciferol (Vitamin D3) (Vitamin D3) 125 Mcg Capsule, 5,000 UNITS PO DAILY, (Reported) Dexamethasone (Dexamethasone) 6 Mg Tablet, 1 TAB PO ONCE Doxycycline Monohydrate (Doxycycline) 100 Mg Capsule, 1 CAP PO BID Fluoxetine Hcl (Fluoxetine HCl) 40 Mg Capsule, 40 MG PO DAILY, (Reported) Furosemide (Furosemide) 20 Mg Tablet, 20 MG PO DAILY, (Reported) Guaifenesin (Mucinex) 600 Mg Tab.er.12h, 600 MG PO BID Methylprednisolone (Medrol) 4 Mg Tab.ds.pk, 4 MG PO ASDIRECTED, (Reported) Omeprazole (Omeprazole) 20 Mg Capsule.dr, 20 MG PO DAILY, (Reported) Omeprazole (Omeprazole) 20 Mg Capsule.dr, 20 MG PO DAILY Scheduled PRN Benzonatate (Tessalon Perle) 100 Mg Capsule, 100 MG PO TID PRN for COUGH, (Reported) Allergies Coded Allergies: No Known Allergies (Unverified , 08/17/20) TERRY GOODWIN MD Aug 22, 2020 13:42
--- NOTE | 2020-08-22 22:32 | ECGEPIP ---
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 Electronically Signed on 08-22-2020 22:32:22 EST by Andrei Juarez
== END 2020-08-22 18:14 | disposition home health service (06) | DRG 137 ==
LOC: M ED 10:40 → M ED INP 14:32 → M 4MAIN 15:37
PROVIDERS: ADMIT Internal Medicine; ATTEND Family Medicine
PROC: 3E0333Z Introduction of Anti-inflammatory into Peripheral Vein, Percutaneous Approach (ICD-10-PCS; principal; 2020-08-20)
DX: U07.1 COVID-19 (principal); J12.82 Pneumonia due to coronavirus disease 2019; R74.01 Elevation of levels of liver transaminase levels; I10 Essential (primary) hypertension; F32.9 Major depressive disorder, single episode, unspecified; F41.0 Panic disorder [episodic paroxysmal anxiety]; R11.2 Nausea with vomiting, unspecified; E55.9 Vitamin D deficiency, unspecified; K21.9 Gastro-esophageal reflux disease without esophagitis; Z79.899 Other long term (current) drug therapy; Z87.891 Personal history of nicotine dependence

== ENCOUNTER → 2020-08-29 | Outpatient (CLI) | payer BC ==
[~2020-08-29] MED LIST changes: +D3 M1CAP2 PO; +DEXA6TAB PO; +DOXY-350 PO; +MEDR4PAK PO; +MUCI600T31 PO
--- NOTE | 2020-08-29 10:56 | REP ---
INDICATION: PNEUMOMIA, FATIGUE LAB 1ST EKG 2ND XR 3RD COMPARISON: 08/20/2020 TECHNIQUE: PA and lateral. FINDINGS: The mediastinum and cardiac silhouette are normal. Lung buckner demonstrate subtle diffuse bilateral airspace disease improved from prior examination and consistent with resolving multifocal pneumonia. Correlation is recommended. No effusion. No pneumothorax. IMPRESSION: Findings consistent with resolving multifocal pneumonia. <Electronically signed by Shane Molina > 08/29/20 [id number]
[2020-08-29 10:59] LABS: HEMOGLOBIN 14.5 g/dl (12.0-15.5); MEAN CORPUSCULAR HEMOGLOBIN 30.3 pg (27.0-33.0); MEAN CORPUSCULAR HGB CONC 32.2 g/dl (32.0-36.5); MEAN CORPUSCULAR VOLUME 94.1 fl (80.0-96.0); PLATELET COUNT, AUTOMATED 442 10^3/uL (150-450); RED BLOOD COUNT 4.78 10^6/uL (4.00-5.40); WHITE BLOOD COUNT 12.8 10^3/uL (4.0-10.0)
[2020-08-29 11:40] LABS: ALT/SGPT 92 U/L (12-78); BILIRUBIN,TOTAL 0.5 MG/DL (0.2-1.0); BLOOD UREA NITROGEN 18 MG/DL (7-18); CALCIUM LEVEL 9.1 MG/DL (8.5-10.1); CARBON DIOXIDE LEVEL 28 MEQ/L (21-32); CHLORIDE LEVEL 101 MEQ/L (98-107); CHOLESTEROL LEVEL 307 MG/DL (<200); CHOLESTEROL RISK RATIO 6.395 (<5); CREATININE FOR GFR 0.99 MG/DL (0.55-1.30); GLOMERULAR FILTRATION RATE > 60.0 (>58); GLUCOSE, FASTING 119 MG/DL (70-100); HDL CHOLESTEROL 48 MG/DL (>40); LDL CHOLESTEROL 201 MG/DL (<100); NON-HDL-C 259 MG/DL; SODIUM LEVEL 139 MEQ/L (136-145); TOTAL PROTEIN 7.3 GM/DL (6.4-8.2); TRIGLYCERIDES LEVEL 291 MG/DL (<150)
[2020-08-29 11:41] LABS: ALBUMIN 3.5 GM/DL (3.2-5.2)
[2020-08-29 13:12] LABS: HEMOGLOBIN A1c 6.3 %
--- NOTE | 2020-08-31 08:19 | ECGEPIP ---
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
== END ==
LOC: M LAB 10:21
PROVIDERS: ATTEND Family Medicine
DX: E03.9 Hypothyroidism, unspecified (principal); R53.83 Other fatigue; J18.9 Pneumonia, unspecified organism

== ENCOUNTER → 2020-10-01 | Outpatient (CLI) | payer BC ==
--- NOTE | 2020-10-01 20:01 | REP ---
INDICATION: F/U PNEUMONIA. COMPARISON: Portable chest dated 08/20/2020 and PA and lateral chest dated 08/29/2020 TECHNIQUE: Upright PA and lateral chest. FINDINGS: The previous bilateral infiltrates have resolved. The lung buckner are clear. Cardiac size is normal. The marleny, mediastinum and skeletal structures are unremarkable. IMPRESSION: Essentially negative PA and lateral chest The previous bilateral infiltrates have resolved. <Electronically signed by Timmy Miller > 10/01/201956
== END ==
LOC: M RAD 12:35
PROVIDERS: ATTEND Family Medicine
DX: J18.9 Pneumonia, unspecified organism (principal)

== ENCOUNTER → 2021-05-11 | Outpatient (CLI) | payer BC ==
[2021-05-11 11:27] LABS: HEMOGLOBIN 14.5 g/dl (12.0-15.5); MEAN CORPUSCULAR HEMOGLOBIN 29.9 pg (27.0-33.0); MEAN CORPUSCULAR HGB CONC 32.2 g/dl (32.0-36.5); MEAN CORPUSCULAR VOLUME 92.8 fl (80.0-96.0); PLATELET COUNT, AUTOMATED 247 10^3/uL (150-450); RED BLOOD COUNT 4.85 10^6/uL (4.00-5.40)
[2021-05-11 11:48] LABS: HEMOGLOBIN A1c 5.5 %
[2021-05-11 12:11] LABS: ALT/SGPT 31 U/L (12-78); BILIRUBIN,TOTAL 0.4 MG/DL (0.2-1.0); BLOOD UREA NITROGEN 13 MG/DL (7-18); CALCIUM LEVEL 9.5 MG/DL (8.5-10.1); CARBON DIOXIDE LEVEL 29 MEQ/L (21-32); CHLORIDE LEVEL 104 MEQ/L (98-107); CHOLESTEROL LEVEL 239 MG/DL (<200); CHOLESTEROL RISK RATIO 5.975 (<5); CREATININE FOR GFR 0.98 MG/DL (0.55-1.30); GLOMERULAR FILTRATION RATE > 60.0 (>58); GLUCOSE, FASTING 86 MG/DL (70-100); HDL CHOLESTEROL 40 MG/DL (>40); LDL CHOLESTEROL 176 MG/DL (<100); NON-HDL-C 199 MG/DL; POTASSIUM SERUM 4.3 MEQ/L (3.5-5.1); SODIUM LEVEL 139 MEQ/L (136-145); THYROID STIMULATING HORMONE 0.716 uIU/ML (0.358-3.740); TOTAL PROTEIN 7.5 GM/DL (6.4-8.2); TRIGLYCERIDES LEVEL 117 MG/DL (<150)
[2021-05-13 10:02] LABS: TOTAL 25(OH) VITAMIN D 92.3 NG/ML (30.0-100.0)
== END ==
LOC: M LAB 09:30
PROVIDERS: ATTEND Family Medicine
DX: R53.83 Other fatigue (principal); I10 Essential (primary) hypertension; E03.9 Hypothyroidism, unspecified

== ENCOUNTER → 2021-11-07 | Outpatient (CLI) | payer OTHER ==
[~2021-11-07] MED LIST changes: +OMEP-173 PO; -OMEP-218 PO
[2021-11-07 11:09] LABS: HEMATOCRIT 44.5 % (36.0-47.0); HEMOGLOBIN 14.6 g/dl (12.0-15.5); MEAN CORPUSCULAR HEMOGLOBIN 30.6 pg (27.0-33.0); MEAN CORPUSCULAR HGB CONC 32.8 g/dl (32.0-36.5); MEAN CORPUSCULAR VOLUME 93.3 fl (80.0-96.0); PLATELET COUNT, AUTOMATED 249 10^3/uL (150-450); RED BLOOD COUNT 4.77 10^6/uL (4.00-5.40); WHITE BLOOD COUNT 7.2 10^3/uL (4.0-10.0)
[2021-11-07 11:36] LABS: HEMOGLOBIN A1c 5.4 %
[2021-11-07 12:12] LABS: ALBUMIN 3.8 GM/DL (3.2-5.2); ALT/SGPT 34 U/L (12-78); BILIRUBIN,TOTAL 0.4 MG/DL (0.2-1.0); BLOOD UREA NITROGEN 14 MG/DL (7-18); CALCIUM LEVEL 9.3 MG/DL (8.5-10.1); CARBON DIOXIDE LEVEL 31 MEQ/L (21-32); CHLORIDE LEVEL 104 MEQ/L (98-107); CHOLESTEROL LEVEL 258 MG/DL (<200); GLOMERULAR FILTRATION RATE > 60.0 (>58); GLUCOSE, FASTING 98 MG/DL (70-100); HDL CHOLESTEROL 50 MG/DL (>40); LDL CHOLESTEROL 180 MG/DL (<100); NON-HDL-C 208 MG/DL; POTASSIUM SERUM 4.1 MEQ/L (3.5-5.1); SODIUM LEVEL 139 MEQ/L (136-145); TOTAL 25(OH) VITAMIN D 72.6 NG/ML (30.0-100.0); TOTAL PROTEIN 7.3 GM/DL (6.4-8.2); TRIGLYCERIDES LEVEL 139 MG/DL (<150)
== END ==
LOC: M RAD 10:12
PROVIDERS: ATTEND Family Medicine
DX: I10 Essential (primary) hypertension (principal); R53.83 Other fatigue; E03.9 Hypothyroidism, unspecified; R07.9 Chest pain, unspecified

== ENCOUNTER → 2021-12-05 | Outpatient (REF) | payer BC | LOC: M PLALAB 10:07 | PROVIDERS: ATTEND Advanced Practice Midwife | DX: Z12.4 Encounter for screening for malignant neoplasm of cervix (principal) | CPT/HCPCS: 87624; G0123 ==

== ENCOUNTER → 2021-12-05 | Outpatient (CLI) | payer BC, OTHER | LOC: M WHC 10:00 | PROVIDERS: ATTEND Advanced Practice Midwife | DX: Z12.31 Encounter for screening mammogram for malignant neoplasm of breast (principal); Z80.49 Family history of malignant neoplasm of other genital organs ==

== ENCOUNTER → 2022-02-12 | Outpatient (CLI) | payer OTHER ==
[2022-02-12 11:59] LABS: HEMATOCRIT 41.6 % (36.0-47.0); HEMOGLOBIN 13.6 g/dl (12.0-15.5); MEAN CORPUSCULAR HEMOGLOBIN 30.9 pg (27.0-33.0); MEAN CORPUSCULAR HGB CONC 32.7 g/dl (32.0-36.5); MEAN CORPUSCULAR VOLUME 94.5 fl (80.0-96.0); PLATELET COUNT, AUTOMATED 254 10^3/uL (150-450); WHITE BLOOD COUNT 9.1 10^3/uL (4.0-10.0)
[2022-02-12 12:03] LABS: APPEARANCE, URINE HAZY (CLEAR); BACTERIA, URINE AUTO 1+ (NEGATIVE); BILIRUBIN, URINE AUTO NEGATIVE (NEGATIVE); BLOOD, URINE BLOOD 1+ (NEGATIVE); COLOR, URINE YELLOW (YELLOW); GLUCOSE, URINE (UA) AUTO NEGATIVE (NEGATIVE); KETONE, URINE AUTO NEGATIVE (NEGATIVE); LEUKOCYTE ESTERASE, URINE AUTO NEGATIVE (NEGATIVE); MUCUS, URINE SMALL (NEGATIVE); NITRITE, URINE AUTO NEGATIVE (NEGATIVE); PROTEIN, URINE AUTO NEGATIVE (NEGATIVE); RBC, URINE AUTO 4 /HPF (0-3); SPECIFIC GRAVITY URINE AUTO 1.009 (1.002-1.035); SQUAMOUS EPITHELIAL CELL UR AU 0 /HPF (0-6); UROBILINOGEN, URINE AUTO 0.2 mg/dL (0.0-2.0); WBC, URINE AUTO 1 /HPF (0-3)
[2022-02-12 13:04] LABS: BLOOD UREA NITROGEN 13 MG/DL (7-18); CREATININE FOR GFR 0.88 MG/DL (0.55-1.30); GLUCOSE, FASTING 85 MG/DL (70-100)
[2022-02-12 13:05] LABS: ALBUMIN 3.6 GM/DL (3.2-5.2); ALT/SGPT 25 U/L (12-78); BILIRUBIN,TOTAL 0.4 MG/DL (0.2-1.0); CALCIUM LEVEL 9.1 MG/DL (8.5-10.1); CARBON DIOXIDE LEVEL 28 MEQ/L (21-32); CHLORIDE LEVEL 106 MEQ/L (98-107); GLOMERULAR FILTRATION RATE > 60.0 (>58); SODIUM LEVEL 139 MEQ/L (136-145); TOTAL PROTEIN 7.2 GM/DL (6.4-8.2)
[2022-02-12 13:30] LABS: HEMOGLOBIN A1c 5.4 %
== END ==
LOC: M LAB 10:58
PROVIDERS: ATTEND Family Medicine
DX: D64.9 Anemia, unspecified (principal); R53.83 Other fatigue; E03.9 Hypothyroidism, unspecified

== ENCOUNTER → 2023-03-12 | Outpatient (CLI) | payer OTHER ==
[~2023-03-12] MED LIST changes: -DOXY-350 PO; +DOXY-444 PO
[2023-03-12 07:21] LABS: HEMATOCRIT 42.2 % (36.0-47.0); HEMOGLOBIN 14.1 g/dl (12.0-15.5); MEAN CORPUSCULAR HGB CONC 33.4 g/dl (32.0-36.5); MEAN CORPUSCULAR VOLUME 95.7 fl (80.0-96.0); PLATELET COUNT, AUTOMATED 233 10^3/uL (150-450); RED BLOOD COUNT 4.41 10^6/uL (4.00-5.40); WHITE BLOOD COUNT 9.3 10^3/uL (4.0-10.0)
[2023-03-12 07:55] LABS: ALBUMIN 3.8 G/DL (3.2-5.2); ALKALINE PHOSPHATASE 90 U/L (46-116); ALT/SGPT 40 U/L (7.0-40); AST/SGOT 25 U/L (<34); BILIRUBIN,TOTAL 0.5 MG/DL (0.3-1.2); BLOOD UREA NITROGEN 16 MG/DL (9-23); CALCIUM LEVEL 9.3 MG/DL (8.5-10.1); CARBON DIOXIDE LEVEL 29 MMOL/L (20-31); CHLORIDE LEVEL 103 MMOL/L (98-107); CHOLESTEROL LEVEL 190 MG/DL (<200); CHOLESTEROL RISK RATIO 3.82 (<5); CREATININE FOR GFR 0.86 MG/DL (0.55-1.30); GLOMERULAR FILTRATION RATE > 60.0 (>51); GLUCOSE, FASTING 114 MG/DL (60-100); HDL CHOLESTEROL 49.7 MG/DL (>40); LDL CHOLESTEROL 112.9 MG/DL (<100); NON-HDL-C 140.3 MG/DL; POTASSIUM SERUM 3.9 MMOL/L (3.5-5.1); SODIUM LEVEL 139 MMOL/L (136-145); TOTAL PROTEIN 7.2 G/DL (5.7-8.2); TRIGLYCERIDES LEVEL 137 MG/DL (<150)
[2023-03-12 07:56] LABS: LUTEINIZING HORMONE 25.3 mIU/ML; THYROID STIMULATING HORMONE 1.982 uIU/ML (0.55-4.78); TOTAL 25(OH) VITAMIN D 49.2 NG/ML (20.0-100.0)
[2023-03-12 07:57] LABS: FOLLICLE STIMULATING HORMONE 15.6 mIU/ML
[2023-03-12 08:20] LABS: HEMOGLOBIN A1c 5.4 % (4.0-6.0)
== END ==
LOC: M LAB 06:45
PROVIDERS: ATTEND Family Medicine
DX: I10 Essential (primary) hypertension (principal); R53.83 Other fatigue; E03.9 Hypothyroidism, unspecified

== ENCOUNTER → 2023-07-02 | Outpatient (CLI) | payer OTHER | LOC: M WHC 09:32 | PROVIDERS: ATTEND Advanced Practice Midwife | DX: Z12.31 Encounter for screening mammogram for malignant neoplasm of breast (principal) ==

== ENCOUNTER → 2023-08-12 | Outpatient (CLI) | payer OTHER ==
[2023-08-12 12:12] LABS: HEMATOCRIT 44.5 % (36.0-47.0); HEMOGLOBIN 14.8 g/dl (12.0-15.5); MEAN CORPUSCULAR HEMOGLOBIN 31.4 pg (27.0-33.0); MEAN CORPUSCULAR HGB CONC 33.3 g/dl (32.0-36.5); MEAN CORPUSCULAR VOLUME 94.3 fl (80.0-96.0); PLATELET COUNT, AUTOMATED 231 10^3/uL (150-450); RED BLOOD COUNT 4.72 10^6/uL (4.00-5.40); WHITE BLOOD COUNT 7.3 10^3/uL (4.0-10.0)
[2023-08-12 12:23] LABS: HEMOGLOBIN A1c 5.6 % (4.0-6.0)
[2023-08-12 12:33] LABS: ALBUMIN 3.9 G/DL (3.2-5.2); ALKALINE PHOSPHATASE 83 U/L (46-116); ALT/SGPT 38 U/L (7.0-40); AST/SGOT 25 U/L (<34); BILIRUBIN,TOTAL 0.4 MG/DL (0.3-1.2); BLOOD UREA NITROGEN 15 MG/DL (9-23); CALCIUM LEVEL 9.2 MG/DL (8.5-10.1); CARBON DIOXIDE LEVEL 29 MMOL/L (20-31); CHLORIDE LEVEL 105 MMOL/L (98-107); CHOLESTEROL LEVEL 226 MG/DL (<200); CREATININE FOR GFR 0.78 MG/DL (0.55-1.30); GLOMERULAR FILTRATION RATE > 60.0 (>51); GLUCOSE, FASTING 103 MG/DL (60-100); HDL CHOLESTEROL 56.5 MG/DL (>40); IRON (FE) 120 UG/DL (50-170); LDL CHOLESTEROL 129.9 MG/DL (<100); NON-HDL-C 169.5 MG/DL; SODIUM LEVEL 139 MMOL/L (136-145); TOTAL IRON BINDING CAPACITY 324 UG/DL (250-425); TOTAL PROTEIN 7.2 G/DL (5.7-8.2); TRIGLYCERIDES LEVEL 198 MG/DL (<150)
[2023-08-12 12:35] LABS: TOTAL 25(OH) VITAMIN D 52.3 NG/ML (20.0-100.0)
== END ==
LOC: M LAB 11:13
PROVIDERS: ATTEND Family Medicine
DX: I10 Essential (primary) hypertension (principal); D64.9 Anemia, unspecified; R53.83 Other fatigue

== ENCOUNTER → 2024-09-19 | Outpatient (CLI) | payer OTHER ==
[~2024-09-19] MED LIST changes: +DOXY-440 PO; -DOXY-444 PO; +ONDA-282 PO; -ONDA4TAB6 PO
[2024-09-19 10:01] LABS: HEMATOCRIT 47.5 % (36.0-47.0); HEMOGLOBIN 15.6 g/dl (12.0-15.5); MEAN CORPUSCULAR HEMOGLOBIN 31.5 pg (27.0-33.0); MEAN CORPUSCULAR HGB CONC 32.8 g/dl (32.0-36.5); PLATELET COUNT, AUTOMATED 266 10^3/uL (150-450); RED BLOOD COUNT 4.95 10^6/uL (4.00-5.40); WHITE BLOOD COUNT 10.6 10^3/uL (4.0-10.0)
[2024-09-19 10:35] LABS: IRON (FE) 111 UG/DL (50-170); PERCENT SATURATION 32.4 % (13.2-45.0); TOTAL IRON BINDING CAPACITY 343 UG/DL (250-425)
[2024-09-19 10:36] LABS: ALBUMIN 4.1 G/DL (3.2-5.2); ALKALINE PHOSPHATASE 108 U/L (35-104); ALT/SGPT 35 U/L (7.0-40); AST/SGOT 28 U/L (<34); BILIRUBIN,TOTAL 0.5 MG/DL (0.3-1.2); BLOOD UREA NITROGEN 17 MG/DL (9-23); CALCIUM LEVEL 9.7 MG/DL (8.5-10.1); CARBON DIOXIDE LEVEL 31 MMOL/L (20-31); CHLORIDE LEVEL 101 MMOL/L (98-107); CHOLESTEROL LEVEL 238 MG/DL (<200); CHOLESTEROL RISK RATIO 3.83 (<5); GLOMERULAR FILTRATION RATE > 60.0 (>51); GLUCOSE, FASTING 106 MG/DL (60-100); HDL CHOLESTEROL 62.1 MG/DL (>40); LDL CHOLESTEROL 121.5 MG/DL (<100); NON-HDL-C 175.9 MG/DL; POTASSIUM SERUM 4.1 MMOL/L (3.5-5.1); SODIUM LEVEL 139 MMOL/L (136-145); TOTAL PROTEIN 8.3 G/DL (5.7-8.2); TRIGLYCERIDES LEVEL 272 MG/DL (<150)
[2024-09-19 10:37] LABS: THYROID STIMULATING HORMONE 1.565 uIU/ML (0.55-4.78)
[2024-09-19 10:38] LABS: TOTAL 25(OH) VITAMIN D 42.5 NG/ML (20.0-100.0)
[2024-09-19 11:01] LABS: HEMOGLOBIN A1c 5.4 % (4.0-6.0)
== END ==
LOC: M LAB 08:43
PROVIDERS: ATTEND Family Medicine
DX: D64.9 Anemia, unspecified (principal); R53.83 Other fatigue; E03.9 Hypothyroidism, unspecified

== ENCOUNTER → 2025-05-17 | Outpatient (CLI) | payer OTHER ==
[2025-05-17 14:13] LABS: BASO # 0.1 10^3/uL (0.0-0.2); BASO % 0.8 % (0.0-1.0); EOS # 0.1 10^3/uL (0.0-0.5); EOS % 0.7 % (0.0-3.0); LYMPH # 3.2 10^3/uL (1.5-5.0); LYMPH % 22.8 % (24.0-44.0); MONO # 0.9 10^3/uL (0.0-0.8); MONO % 6.1 % (2.0-8.0); NEUTROPHILS # 9.5 10^3/uL (1.5-8.5); NEUTROPHILS % 66.6 % (36.0-66.0); PLATELET COUNT, AUTOMATED 484 10^3/uL (150-450)
[2025-05-17 14:15] LABS: ALT/SGPT 76.0 U/L (7.0-40); AST/SGOT 43.0 U/L (<34); CALCIUM LEVEL 9.8 MG/DL (8.5-10.1); CARBON DIOXIDE LEVEL 29.0 MMOL/L (20-31); CHLORIDE LEVEL 101.0 MMOL/L (98-107); CREATININE FOR GFR 0.85 MG/DL (0.55-1.30); GLOMERULAR FILTRATION RATE 81.9 (>51); POTASSIUM SERUM 5.4 MMOL/L (3.5-5.1); SODIUM LEVEL 140.0 MMOL/L (136-145)
== END ==
LOC: M PLAIMG 09:59
DX: J18.9 Pneumonia, unspecified organism (principal); R74.8 Abnormal levels of other serum enzymes